=== PATIENT | male | born 1960 | race Caucasian/White ===

== ENCOUNTER → 2018-01-15 14:57 | Outpatient (CLI) | payer MEDICAID, SELFPAY ==
[2018-01-15 15:42] LABS: Alanine Aminotransferase 25 U/L (12-78); Albumin Level 3.5 gm/dL (3.4-5.0); Albumin/Globulin Ratio 0.9 (1.1-1.8); Alkaline Phosphatase 94 U/L (46-116); Anion Gap 9.9 mEq/L (5-15); Aspartate Amino Transferase 17 U/L (15-37); Bilirubin,Total 0.1 mg/dL (0.2-1.0); Blood Urea Nitrogen 18 mg/dL (7-18); Calcium 9.4 mg/dL (8.5-10.1); Carbon Dioxide 29 mmol/L (21.0-32.0); Chloride 104 mmol/L (98-107); Creatinine,Serum 0.69 mg/dL (0.70-1.30); Estimated Glomerular Filt Rate 118 ml/min (>60); GFR (African American) 143 ML/MIN (>60); Globulin 3.7 gm/dl (1.3-3.2); Glucose 88 mg/dL (74-106); Potassium 3.9 mmoL/L (3.5-5.1); Sodium 139 mmol/L (136-145); Thyroid Stimulating Hormone 5.86 uIU/ml (0.358-3.740); Total Protein,Serum 7.2 gm/dL (6.4-8.2)
--- NOTE | 2018-01-15 15:51 | CT_ITS ---
CT chest w con HISTORY: ITS.REASON: TONSILLAR CA,RT JAW PAIN,SUPRACLAVICULAR LYMPHADENOPATHY ORDERING PHYSICIAN: Kala Michaels PATIENT AGE: 57 years TECHNIQUE: Axial images obtained following the administration of 50 mL of Isovue 370 . Sagittal, and coronal reformatted images are also generated and reviewed. All CT scans at the facility use one or more dose reduction, viz: automated exposure control; ma/kV adjustment per patient size (including targeted exams where dose is matched to indication; i.e. head); or iterative reconstruction technique. COMPARISON: None FINDINGS: There are a few scattered small mediastinal lymph nodes. No enlarged lymph nodes apparent. No mediastinal or hilar mass or adenopathy. There is some ectasia of the thoracic aorta. No evidence of aortic aneurysm or dissection. No large central pulmonary embolus. Diffuse upper lobe centrilobular and paraseptal emphysematous changes with prominence of the interstitium. There are bullous changes in both upper lobes medially. No suspicious pulmonary nodules, infiltrates, or effusions. Minimal parenchymal opacity in the left upper lobe laterally and inferiorly and may relate to an area of scarring in a be confirmed with follow-up. No bony destructive process. There are a few scattered isodensity within the liver the largest in the right hepatic lobe hepatic cysts. Ultrasound may confirm. There are small right renal cyst. IMPRESSION: 1. Centrilobular and paraseptal emphysema with prominence of the interstitium. 2. No mediastinal or hilar adenopathy. No suspicious pulmonary lesions.. 3. No obvious axillary or supraclavicular adenopathy.
--- NOTE | 2018-01-15 15:53 | CT_ITS ---
CT soft tissue neck w con INDICATION: ITS.REASON: TONSILLAR CA,SUPRCLAVICULAR LYMPHDENOPATHY,RT JAW PAIN ORDERING PHYSICIAN: Kala Michaels PATIENT AGE: 57 years COMPARISON: Old exams have been sent for but are not yet available at the time of the reading. An addendum may be added if old studies are made available TECHNIQUE: Axial images are obtained following the intravenous administration of 50 mL's of Isovue-370. Sagittal and coronal reformatted images are reviewed as well. All CT scans at the facility use one or more dose reduction, viz: automated exposure control; ma/kV adjustment per patient size (including targeted exams where dose is matched to indication; i.e. head); or iterative reconstruction technique. FINDINGS: There is some fullness of the left fossa of Rosenmuller in the nasopharyngeal region. There is also slight increased density in the left parapharyngeal area at the level of the base of the uvula. This extends somewhat posteriorly in the left lateral oropharynx and hypopharynx. In the region of the palatine tonsils. Correlation with direct visualization and correlation with old films are needed. No obvious adenopathy or abscess. The epiglottis and uvula and glottic region have an unremarkable appearance. No supraclavicular adenopathy apparent. No acute bony anomalies. The thyroid gland, parotid gland, submandibular glands have an unremarkable appearance. IMPRESSION: Increased soft tissue fullness is noted in the left nasopharynx at the fossa of Rosenmuller and extends along the left parapharyngeal region to the palatine tonsil area. Residual recurrent neoplasm is a consideration. Please correlate with direct visualization an old studies. No cervical or supraclavicular adenopathy evident
[2018-01-15 16:22] LABS: Basophils % 0.4 % (0.1-2.0); Eosinophils # 0.2 K/mm3 (0.0-0.4); Hematocrit 39.1 % (42.0-52.0); Lymphocytes # 0.8 K/mm3 (0.7-4.5); Lymphocytes % 12.5 K/mm3 (10-50); Mean Corpuscular HGB Conc 33.2 g/dL (31.8-35.4); Mean Corpuscular Hemoglobin 30.7 pg (27.0-31.2); Mean Corpuscular Volume 92.5 fl (80-94); Mean Platelet Volume 9.9 fl (7.4-10.4); Monocytes # 0.6 K/mm3 (0.1-1.0); Monocytes % 8.7 % (1.7-9.3); Neutrophils # 4.9 K/mm3 (1.8-7.8); Neutrophils % 75.4 % (37.0-80.0); Platelet Count 194 K/mm3 (142-424); Red Blood Count 4.22 M/mm3 (4.60-6.20); Red Cell Distribution Width 15.6 % (11.5-17.5); White Blood Count 6.5 K/mm3 (4.8-10.8)
--- NOTE | 2018-04-03 13:39 | SW/DCPLANNER ---
Patient has previously been set up with tube feedings through [facility]. Patient did have an appointment yesterday and stated to nurse (Tosha) that he was out of tube feedings. I have contacted Mandy at [facility] to inform her that this patient will need more tube feedings....Mandy stated that they have been trying to get ahold of this patient with no response. I did inform Mandy that patient is very hard to get ahold of via phone but patient is almost always at home. [facility] will [facility] to get ahold of patient and/or deliver tube feedings.
== END ==
PROVIDERS: PCP Nurse Practitioner Family; Visit Provider Nurse Practitioner
DX: C09.9 Malignant neoplasm of tonsil, unspecified (principal); R68.84 Jaw pain
CPT/HCPCS: 36415; 70491; 71260; 80053; 84443; 85025; Q9967

== ENCOUNTER → 2018-06-17 08:19 | Outpatient (CLI) | payer MEDICAID, SELFPAY ==
[2018-06-17 08:50] LABS: Alanine Aminotransferase 16 U/L (12-78); Albumin Level 3.5 gm/dL (3.4-5.0); Albumin/Globulin Ratio 0.9 (1.1-1.8); Alkaline Phosphatase 85 U/L (46-116); Anion Gap 8.2 mEq/L (5-15); Aspartate Amino Transferase 10 U/L (15-37); Bilirubin,Total 0.3 mg/dL (0.2-1.0); Blood Urea Nitrogen 14 mg/dL (7-18); Calcium 9.7 mg/dL (8.5-10.1); Carbon Dioxide 35 mmol/L (21.0-32.0); Chloride 105 mmol/L (98-107); Creatinine,Serum 0.93 mg/dL (0.70-1.30); Estimated Glomerular Filt Rate 84 ml/min (>60); GFR (African American) 101 ML/MIN (>60); Glucose 110 mg/dL (74-106); Potassium 4.2 mmoL/L (3.5-5.1); Sodium 144 mmol/L (136-145); Total Protein,Serum 7.5 gm/dL (6.4-8.2)
--- NOTE | 2018-06-17 09:22 | MR_ITS ---
MR head/brain wo/w con HISTORY: Non-small cell metastatic lung cancer ITS.REASON: NON-SMALL CELL LUNG CANCER ORDERING PHYSICIAN: Referral Provider PATIENT AGE: 57 years Comparison: TECHNIQUE: Standard multiplanar multiecho sequences are performed without and with gadolinium enhancement . FINDINGS: No midline shift a, mass effect, intracranial hemorrhage, or hydrocephalus is evident. No evidence of acute infarction. There is mild generalized atrophy with a few scattered periventricular and subcortical T2 white matter hyperintensities consistent with ischemic gliotic change from microvascular disease. Perivascular dilated spaces are present within the basal ganglia. No enhancing lesions evident that would indicate metastatic disease. There is a mildly prominent draining vein in the left parietal region draining to the cortex from the paraventricular region consistent with an incidental developmental venous anomaly.. There is some slight increase T2 signal in this region suggesting some mild gliotic change. The cerebellopontine angle, cerebellum, and brainstem are unremarkable. The pituitary and optic chiasm are unremarkable. No cerebellar ectopia. There is opacification of the right mastoid sinus and a small retention cyst in the right maxillary sinus superiorly. IMPRESSION: 1. No evidence of intracranial metastasis. 2. 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 Atrophy with chronic ischemic gliotic changes. 4. Right mastoid sinus disease
== END ==
PROVIDERS: PCP Nurse Practitioner Family; Referring Provider Surgery; Visit Provider Physician Assistant Medical
DX: C34.90 Malignant neoplasm of unspecified part of unspecified bronchus or lung (principal)
CPT/HCPCS: 36415; 70553; 80053; A9576

== ENCOUNTER → 2021-09-29 10:49 | Outpatient (POV) | payer MEDICARE, MEDICAID, SELFPAY ==
[2021-09-29 10:56] VITALS: BP 123/81; PULSE 123; RESP 18; TEMP 36.8; O2SAT 96; BMI 20.1
--- NOTE | 2021-09-29 11:13 | P.CONS_ITS ---
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 We will also increase his gabapentin to 3 mg 3 times a day. We will follow up on his drug screen and follow-up with him in 1 month. We will reevaluate his symptoms and make adjustments if needed. HPI - Data of Consult Patient: new to practice Consult date: 09/29/21 Requesting Physician: Isaias Hester MD - Consult Narrative Reason for consult: Head and neck pain on the right side status post malignant neoplasm of the History of present illness: Mr. Wisdom is a 60 year old male who was previously treated last year for malignant neoplasm of the lung and right tonsil. He underwent chemotherapy and surgery. He has had resolution of his cancer. He still presents with some right jaw and neck pain. He was treated with oral narcotics oxycodone 10 mg 6 times a day and gabapentin 600 mg once a day. His oncologist was treating him this is Dr. Meseret Nielsen. We will take over his medical management for his he ad neck pain due to his cancer. Eitan and drug screen are all appropriate. We will write him for oxycodone 10 mg 5 times a day as he can decrease 1 pill and increase his gabapentin to 300 mg 3 times a day. CC: Isaias Hester MD [facility] History I have reviewed the patient's past medical history: Yes Medical History: Reports:: Cancer (LUNG) Denies:: Diabetes Mellitus Type 1, Diabetes Mellitus Type 2, MRSA *Have you ever received a pneumonia vaccine?: No *Have you received a flu vaccine this season?: No Other Surgeries: Yes: Other Amputation: No Fractures: No - *Social History Last grade of school completed: High school graduate Smoking Status: Current every day smoker Tobacco Type: cigarettes # Packs/Day (cigarettes): 1 Alcohol Intake: never Substance Use Type: denies use *Occupational Status:: disabled Housing: house Household Members: family *Travel in the last 8 weeks: None Family Hx:: Cancer Review of Systems - ENT Reports neck pain, Reports sore throat Meds Home Medications Medication Instructions Recorded Confirmed Type oxycodone-acetaminophen 10 mg-325 1 tab PO Q6H PRN tab 01/10/18 09/29/21 History mg tablet Allergies Allergy/AdvReac Type Severity Reaction Status Date / Time No Known Allergies Allergy Verified 09/29/21 10:55 Objective Vital signs: Temp Pulse Resp BP Pulse Ox 98.2 F 123 H 18 123/81 96 09/29/21 10:56 09/29/21 10:56 09/29/21 10:56 09/29/21 10:56 09/29/21 10:56
== END ==
PROVIDERS: Visit Provider Anesthesiology
DX: C76.0 Malignant neoplasm of head, face and neck (principal); C09.9 Malignant neoplasm of tonsil, unspecified
CPT/HCPCS: 99202; G0463

== ENCOUNTER → 2021-10-30 08:45 | Outpatient (POV) | payer MEDICARE, MEDICAID, SELFPAY ==
[2021-10-30 09:00] VITALS: BP 92/64; PULSE 69; RESP 18; O2SAT 95; BMI 20.9
--- NOTE | 2021-10-30 09:02 | HMH.PAINSOAP ---
[facility] Pain Management SOAP Note Subjective:: Patient is a pleasant 60-year-old male who comes in here today for follow-up and medication refill. We are currently managing the patient's pain secondary to malignant neoplasm of head, face, neck, and tonsil. He is currently being managed with oxycodone 10 mg 5 times a day and gabapentin 300 mg 3 times a day. Patient denies any side effects from these medications. Patient denies any change in location of the pain. He rates his pain today as 5 out of 10. His Angélica is [phone] with an active morphine equivalent of 75. ORT score is 0, low risk. Drug screens have been reviewed and appropriate. Review of Systems General: No recent weight changes, no fever, no sleep disturbances ENT: neck pain, sore throat Respiratory: No cough, no shortness of air, no recurring pulmonary infections Cardiovascular/peripheral vascular: No chest pain, no palpitations, no edema, no shortness of breath Gastrointestinal: No new onset incontinence, normal bowel movements reported Genitourinary: No new onset incontinence Psychiatric: [Normal mood/affect] Neurological: [Denies weakness in extremities], [denies balance issues] Objective:: Physical exam General: Alert and oriented x3, no acute distress, pleasant and cooperative ENT: limited ROM of neck d/t pain Lungs: Respirations even and unlabored, symmetrical chest expansion Eyes: PERRL Musculoskeletal: Normal gait noted Neurological: Speech clear, no gross sensory deficit Assessment:: Malignant neoplasm of head, face, and neck Malignant neoplasm of tonsil, unspecified Plan:: We will continue the patient's oxycodone 10 mg Rytary 5 times a day and gabapentin 300 mg 3 times a day. We will provide the patient with 1 month worth of refill. We would like to see the patient again in 1 month to reevaluate symptoms and make adjustments if needed. Risks and benefits of the medication have been explained in detail to the patient. The patient does understand the risk of dependence on the medication when given over a prolonged period. Patient has been advised of risks of oversedation with the prescribed medication. Narcan has been offered to the paitent in the event of oversedation. Patient has been advised that a family member should also be educated regarding administration of Narcan. The patient has been advised to consult with his/her primary care provider and pharmacist regarding drug-drug interaction of medications currently prescribed. Patient has been prescribed a controlled substance after being counseled on the medication, medication safety, and possible side effects. ANGÉLICA report has been obtained and reviewed prior to prescription and found to be appropriate. Opioid contract was reviewed and signed by the patient, and that they have agreed to all of the terms set forth by our compliance program. Patient has been instructed to contact the clinic with any concerns before the next appointment. Dr. Hester has reviewed this note and agrees with this plan of care. This note was dictated using voice recognition software and make contain errors or omissions. Patient has been instructed to contact the clinic with any concerns before the next appointment. Dr. Hester has reviewed this note and agrees with this plan of care. This note was dictated using voice recognition software and make contain errors or omissions. [facility] History Medical History: Reports:: Cancer (LUNG) Denies:: Diabetes Mellitus Type 1, Diabetes Mellitus Type 2, MRSA *Have you ever received a pneumonia vaccine?: No *Have you received a flu vaccine this season?: No Other Surgeries: Yes: Other Amputation: No Fractures: No - *Social History Smoking Status: Current every day smoker Tobacco Type: cigarettes # Packs/Day (cigarettes): 1 Alcohol Intake: never Substance Use Type: denies use *Occupational Status:: unemployed Housing: house Household Members: family *Travel
== END ==
PROVIDERS: Visit Provider Clinical Nurse Specialist Family Health
DX: C76.0 Malignant neoplasm of head, face and neck (principal); C09.9 Malignant neoplasm of tonsil, unspecified
CPT/HCPCS: 99212; G0463

== ENCOUNTER 2021-12-01 10:47 | Outpatient (REF) | payer MEDICARE, MEDICAID, SELFPAY ==
[2021-12-01] VITALS (21 sets, daily range): BP systolic 73–107; BP diastolic 37–87; PULSE 68–120; RESP 20–120; TEMP 35.6–36.9; O2SAT 95–99; BMI 16.9
[2021-12-01 11:43] LABS: Hematocrit 21.1 % (42.0-52.0)
[2021-12-01 11:44] LABS: Hemoglobin 6.5 g/dL (14.1-18.0)
[2021-12-01 17:38] LABS: Hematocrit 28.9 % (42.0-52.0)
[2021-12-01 17:45] LABS: Hemoglobin 9.3 g/dL (14.1-18.0)
== END 2021-12-01 17:45 | disposition home or self-care (01) ==
LOC: INF 10:47
PROVIDERS: PCP Nurse Practitioner Family; Visit Provider Nurse Practitioner Family
DX: D64.9 Anemia, unspecified (principal)
CPT/HCPCS: 36430; 85014; 85018; 86850; P9016

== ENCOUNTER 2021-12-11 18:37 | Inpatient (IN) | payer MEDICARE, MEDICAID, SELFPAY ==
--- NOTE | 2021-12-11 18:36 | ECG_ITS ---
APPROVED REPORT Exam: Resting ECG HR:120 bpm ECG Measurements Heart Rate 120 AXES AL 148 P 61 QRSd 84 QRS 93 QT 304 T 70 QTc 375 Conclusion SINUS TACHYCARDIA BORDERLINE RIGHT AXIS DEVIATION [QRS AXIS > 90] ABNORMAL RHYTHM ECG UNCONFIRMED REPORT Electronically signed by : Norris Ng MD 12/12/2021 13:48:32
[2021-12-11 18:38] VITALS: BP 100/64; PULSE 121; RESP 16; TEMP 36.8; O2SAT 94; BMI 15.2
--- NOTE | 2021-12-11 18:40 | XR_ITS ---
PROCEDURE INFORMATION: Exam: XR Chest Exam date and time: 12/11/2021 6:40 PM Age: 61 years old Clinical indication: Cough TECHNIQUE: Imaging protocol: XR of the chest. Views: 1 view. COMPARISON: CHESTW CT chest w con 01/15/2018 4:24 PM FINDINGS: Lungs: Bilateral mid and lower lung zone predominant ground-glass and linear opacities, right greater than left, likely multifocal pneumonia. Atypical viral pneumonia, such as COVID-19, could have this appearance. Alternatively or concomitantly, hydrostatic/cardiogenic pulmonary edema possible. Pleural spaces: Unremarkable. No pleural effusion. No pneumothorax. Heart/Mediastinum: Normal. Vasculature: Atherosclerotic vascular disease. Bones/joints: Multilevel thoracic spine degenerative disc space narrowing and osteophyte formation. IMPRESSION: Bilateral mid and lower lung zone predominant ground-glass and linear opacities, right greater than left, likely multifocal pneumonia. Atypical viral pneumonia, such as COVID-19, could have this appearance. Alternatively or concomitantly, hydrostatic/cardiogenic pulmonary edema possible.
--- NOTE | 2021-12-11 18:52 | HMH.EDCP ---
ED Disposition Clinical Impression: Atypical pneumonia, Elevated troponin I level Chest pain Qualifiers: Chest pain type: unspecified Qualified Code(s): R07.9 - Chest pain, unspecified Disposition: Admitted As Inpatient Condition on Discharge: Fair - Critical Care Critical Care Time: No Attestation: On , the high probability of a clinically significant, sudden or life threatening deterioration of the following system(s) required my full and direct attention, intervention and personal management. The time I documented below is in addition to time spent performing reported procedures but includes the following listed in this critical care notation. Medical Decision Making - Medical Records Medical records reviewed: Yes: I reviewed the patient's medical records. - Eitan Inquiry Pt receiving controlled substance: No Vital Signs: 12/11/21 18:38 Temperature 98.3 F Temperature Source Oral Pulse Rate [Left Radial] 121 H Respiratory Rate 16 Blood Pressure [Right Arm] 100/64 L Blood Pressure Mean [Right Arm] 76 Blood Pressure Source [Right Arm] Automatic Cuff Blood Pressure Position [Right Arm] Sitting 02 Sat by Pulse Oximetry 94 L Oxygen Delivery Method Room Air - Lab Data Lab Results 12/11/21 18:43: WBC 12.1 H, RBC 2.71 L, Hgb 7.5 L, Hct 26.2 L, MCV 96.5 H, MCH 27.7, MCHC 28.7 L, RDW 20.4 H, Plt Count 345, MPV 10.0, Neut % (Auto) 84.6 H, Lymph % (Auto) 8.4 L, George % (Auto) 4.6, Eos % (Auto) 1.7, Baso % (Auto) 0.7, Neut # (Auto) 10.3 H, Lymph # (Auto) 1.0, George # (Auto) 0.6, Eos # (Auto) 0.2, Baso # (Auto) 0.1 12/11/21 18:43: Sodium 134 L, Potassium 4.1, Chloride 102, Carbon Dioxide 27, Anion Gap 9.1, BUN 26 H, Creatinine 0.50 L, Estimated Creat Clear 53, Estimated GFR 169, Est GFR ( Amer) 205, Glucose 98, Calcium 8.5, Total Bilirubin 0.5, AST 44, ALT 35, Alkaline Phosphatase 92, Troponin I 0.05 H, NT-Pro-B Natriuret Pep 1380 H, Total Protein 7.2, Albumin 3.6, Globulin 3.6 H, Albumin/Globulin Ratio 1.0 L Result diagrams: 12/11/21 18:43 12/11/21 18:43 Orders (Tests/Meds): ED MEDICATIONS Generic Name Dose Route Start Last Admin Trade Name Familia PRN Reason Stop Dose Admin Doxycycline Hyclate 100 mg/ 250 mls @ 166.667 mls/hr 12/11/21 19:45 Sodium Chloride IV 12/25/21 19:44 Q12H CEE Discontinued Medications Generic Name Dose Route Start Last Admin Trade Name Freq PRN Reason Stop Dose Admin Dexamethasone Sodium Phosphate 10 mg 12/11/21 19:37 Dexamethasone 4mg/Ml 5ml Mdv IV 12/11/21 19:38 ONCE ONE ORDERS Category Date Time Status Rapid PCR Covid and Flu A/B Stat Lab 12/11/21 19:37 Ordered Troponin I Q3H Lab 12/11/21 21:45 Ordered Troponin I Q3H Lab 12/12/21 00:45 Ordered - Radiology Data #1 Image(s): Chest Image Reviewed: Yes I reviewed the patient's radiology results, Yes I reviewed the patient's radiology image, Yes I have reviewed radiologist's interpretation IMPRESSION: Bilateral mid and lower lung zone predominant ground-glass and linear opacities, right greater than left, likely multifocal pneumonia. Atypical viral pneumonia, such as COVID-19, could have this appearance. Alternatively or concomitantly, hydrostatic/cardiogenic pulmonary edema possible. - ECG Data Tracing #1 I reviewed this ECG and interpreted as documented below: Tachycardic rate of 120 bpm, CO interval 140 ms, normal QTC. Sinus tachycardia with nonspecific changes. ECG initial impression date: 12/11/21 ECG initial impression time: 18:36 - Reevaluation(s) Time: 19:43 Reevaluation #1: Reevaluation, patient's pain is improved. Does have slightly elevated troponin. Chest x-ray is consistent with viral pneumonia. Versus atypical pneumonia. Patient started on antibiotics. Will be admitted to the hospital for further evaluation and treatment. Medical Decision Narrative: 61-year-old male presented to the emergency department with some chest discomfort
[2021-12-11 18:56] LABS: Basophils # 0.1 K/mm3 (0-0.2); Basophils % 0.7 % (0.1-2.0); Eosinophils # 0.2 K/mm3 (0.0-0.4); Eosinophils % 1.7 % (0.1-12.0); Hematocrit 26.2 % (42.0-52.0); Hemoglobin 7.5 g/dL (14.1-18.0); Lymphocytes % 8.4 % (10-50); Mean Corpuscular HGB Conc 28.7 g/dL (31.8-35.4); Mean Corpuscular Hemoglobin 27.7 pg (27.0-31.2); Mean Corpuscular Volume 96.5 fl (80-94); Monocytes # 0.6 K/mm3 (0.1-1.0); Monocytes % 4.6 % (1.7-9.3); Neutrophils # 10.3 K/mm3 (1.8-7.8); Neutrophils % 84.6 % (37.0-80.0); Platelet Count 345 K/mm3 (142-424); Red Blood Count 2.71 M/mm3 (4.60-6.20); Red Cell Distribution Width 20.4 % (11.5-17.5); White Blood Count 12.1 K/mm3 (4.8-10.8)
[2021-12-11 19:00] VITALS: BP 91/54; PULSE 117; O2SAT 99
[2021-12-11 19:03] LABS: Chloride 102 mmol/L (98-107); Sodium 134 mmol/L (136-145)
[2021-12-11 19:04] LABS: Potassium 4.1 mmoL/L (3.5-5.1)
[2021-12-11 19:06] LABS: Alanine Aminotransferase 35 U/L (12-78); Albumin Level 3.6 g/dl (3.5-5.0); Alkaline Phosphatase 92 U/L (38-126); Anion Gap 9.1 mEq/L (5-15); Aspartate Amino Transferase 44 U/L (17-59); Bilirubin,Total 0.5 mg/dl (0.2-1.3); Blood Urea Nitrogen 26 mg/dl (9-20); Carbon Dioxide 27 mmol/L (22.0-30.0); Creatinine Clearance Estimated 53 mL/min (50-200); Estimated Glomerular Filt Rate 169 ml/min (>60); GFR (African American) 205 ML/MIN (>60); Globulin 3.6 g/dL (1.3-3.2); Total Protein,Serum 7.2 g/dl (6.3-8.2)
[2021-12-11 19:07] LABS: Calcium 8.5 mg/dl (8.4-10.2); Glucose 98 mg/dl (74-100)
[2021-12-11 19:15] LABS: NT Pro Brain Natriuretic Pep. 1380 pg/mL (0-125)
[2021-12-11 19:18] LABS: Troponin I 0.05 ng/ml (0.00-0.034)
[2021-12-11 19:30] VITALS: BP 93/56; PULSE 119; O2SAT 97
[2021-12-11 19:57] LABS: Coronavirus 19, PCR Not Detected (NotDetected); Influenza A, PCR Not Detected (NotDetected); Influenza B, PCR Not Detected (NotDetected)
[2021-12-11 20:00] VITALS: BP 92/57; PULSE 119; O2SAT 97
[2021-12-11 20:58] VITALS: BP 95/68; PULSE 119; RESP 20; TEMP 36.9; O2SAT 94
--- NOTE | 2021-12-11 20:58 | PC.NURSE ---
Report called to VIKASH Joyner at this time.
--- NOTE | 2021-12-11 21:14 | PC.NURSE ---
PT ARRIVED TO FLOOR FROM ED AT 2113
[2021-12-11 21:45] VITALS: PULSE 120; BMI 15.1
[2021-12-11 22:45] LABS: Troponin I 0.06 ng/ml (0.00-0.034)
[2021-12-12] VITALS (28 sets, daily range): BP systolic 80–107; BP diastolic 53–74; PULSE 113–127; RESP 16–26; TEMP 36.4–36.9; O2SAT 90–97; BMI 18.5
[2021-12-12 01:16] LABS: Troponin I 0.06 ng/ml (0.00-0.034)
[2021-12-12 05:39] LABS: Basophils % 0.2 % (0.1-2.0); Eosinophils % 0.1 % (0.1-12.0); Hematocrit 23.4 % (42.0-52.0); Lymphocytes # 0.6 K/mm3 (0.7-4.5); Lymphocytes % 4.2 % (10-50); Mean Corpuscular HGB Conc 29.6 g/dL (31.8-35.4); Mean Corpuscular Hemoglobin 28.2 pg (27.0-31.2); Mean Corpuscular Volume 95.3 fl (80-94); Mean Platelet Volume 9.9 fl (7.4-10.4); Monocytes # 0.2 K/mm3 (0.1-1.0); Monocytes % 1.4 % (1.7-9.3); Neutrophils # 13.6 K/mm3 (1.8-7.8); Neutrophils % 94.1 % (37.0-80.0); Platelet Count 314 K/mm3 (142-424); Red Blood Count 2.45 M/mm3 (4.60-6.20); Red Cell Distribution Width 20.4 % (11.5-17.5); White Blood Count 14.5 K/mm3 (4.8-10.8)
[2021-12-12 05:41] LABS: Hemoglobin 6.9 g/dL (14.1-18.0)
[2021-12-12 05:42] LABS: MANUAL DIFFERENTIAL MANUAL DIFFERENTIAL (MANUAL DIFF)
[2021-12-12 05:45] LABS: Chloride 105 mmol/L (98-107); Potassium 4.5 mmoL/L (3.5-5.1); Sodium 133 mmol/L (136-145)
[2021-12-12 05:48] LABS: Anion Gap 8.5 mEq/L (5-15); Blood Urea Nitrogen 25 mg/dl (9-20); Carbon Dioxide 24 mmol/L (22.0-30.0); Creatinine Clearance Estimated 53 mL/min (50-200); Estimated Glomerular Filt Rate 169 ml/min (>60); GFR (African American) 205 ML/MIN (>60); Glucose 138 mg/dl (74-100)
[2021-12-12 06:03] LABS: Neutrophils % 100 % (42-76); Platelet Estimate Normal; Total Cells Counted 100
[2021-12-12 06:04] LABS: Anisocytosis 1+; Hypochromasia 1+
--- NOTE | 2021-12-12 07:27 | P.CONPHA_ITS ---
[facility] Pharmacy VTE Monitoring - Patient Demographics Admission date: 12/11/21 Report Date: 12/12/21 Time: 07:27 Allergies/Adverse Reactions: Patient Allergies No Known Allergies Allergy (Verified 09/29/21 10:55) Height: 1.78 m Weight: 58.74 kg Patient Problems: Current Active Problems Chest pain (Acute) Atypical pneumonia (Acute) Elevated troponin I level (Acute) - VTE Risk Labs: VTE Related Lab Results Hgb 6.9 g/dL (14.1-18.0) L 12/12/21 05:26 Hct 23.4 % (42.0-52.0) L 12/12/21 05:26 Plt Count 314 K/mm3 (142-424) 12/12/21 05:26 BUN 25 mg/dl (9-20) H 12/12/21 05:26 Creatinine 0.50 mg/dl (0.66-1.25) L 12/12/21 05:26 Estimated Creat Clear 53 mL/min (50-200) 12/12/21 05:26 VTE Score: 4 VTE Risk Level: Low Risk - Prophylaxis VTE Prophylaxis Ordered?: Yes Types of VTE Prophylaxis: TEDS Knee High, Pharmacological Location of Applied Device: Bilateral Lower Extremeties Pharmacologic Type: Heparin
--- NOTE | 2021-12-12 07:38 | HMH.PHAINT ---
MEDICATION RECONCILIATION COMPLETED ON PATIENT USING MAR FROM LONG TERM. -JOCELYNE MARIE, MOSESD
--- NOTE | 2021-12-12 09:40 | HMH.HP ---
*Admission Date: 12/11/21 *Chief complaint: Chest Pressure *History of present illness: 61-year-old male patient presented to the [facility] emergency department with reports of chest discomfort. He states that this discomfort started earlier in the day and resolved shortly afterwards, he denied pain at present states the pain was midline and nonradiating reports it felt more like a dullness. He denies any shortness of breath, cough, headache, fever/chills/body aches, or nausea/vomiting/diarrhea 12/11/21 CXR: FINDINGS: Lungs: Bilateral mid and lower lung zone predominant ground-glass and linear opacities, right greater than left, likely multifocal pneumonia. Atypical viral pneumonia, such as COVID-19, could have this appearance. Alternatively or concomitantly, hydrostatic/cardiogenic pulmonary edema possible. Pleural spaces: Unremarkable. No pleural effusion. No pneumothorax. Heart/Mediastinum: Normal. Vasculature: Atherosclerotic vascular disease. Bones/joints: Multilevel thoracic spine degenerative disc space narrowing and osteophyte formation. IMPRESSION: Bilateral mid and lower lung zone predominant ground-glass and linear opacities, right greater than left, likely multifocal pneumonia. Atypical viral pneumonia, such as COVID-19, could have this appearance. Alternatively or concomitantly, hydrostatic/cardiogenic pulmonary edema possible. Electronically signed by Jayant Coates MD 61-year-old male patient resting in bed quietly she denies any chest pain or shortness of breath during the night. Hemoglobin 6.9 we will transfuse 2 units of packed red blood cells. [facility] History I have reviewed the patient's past medical history: Yes Medical History: Reports:: Cancer Denies:: Diabetes Mellitus Type 1, Diabetes Mellitus Type 2, MRSA *Have you ever received a pneumonia vaccine?: No *Have you received a flu vaccine this season?: No Other Surgeries: Yes: Other Amputation: No Fractures: No - *Social History Last grade of school completed: High school graduate Smoking Status: Former smoker Tobacco Type: cigarettes # Packs/Day (cigarettes): 1 Alcohol Intake: never Substance Use Type: denies use *Occupational Status:: disabled Housing: alf Household Members: other *Travel in the last 8 weeks: None Family Hx:: Cancer Review of Systems - Review of Systems Review of systems:: pertinent systems reviewed and negative unless documented below - Constitutional Denies body ache(s) - Eyes Denies blurry vision, Denies change in vision - ENT Denies abnormal hearing, Denies dizziness - *Cardiovascular Reports chest pain, Reports chest pain at rest - *Respiratory Denies change in phlegm color, Denies chest congestion, Denies cough, Denies shortness of breath - *Gastrointestinal Denies abdominal pain, Denies change in stools - *Musculoskeletal Denies back pain, Denies body aches - Integumentary/Breasts Denies hair loss, Denies non-healing lesions - *Neurologic Denies abnormal hearing, Denies headache(s) - Psychiatric Denies lack of enjoyment, Denies anxiety - Endocrine Denies cold intolerance, Denies excessive sweating - Hematologic/Lymphatic Denies easy bleeding, Denies easy bruising - Allergic/Immunologic Denies GI upset with certain foods, Denies tongue swelling Meds Home Medications Medication Instructions Recorded Confirmed Type Levothyroxine Sodium 100 mcg G-TUBE DAILY 10/30/21 12/12/21 History [Levothyroxine 100mcg (0.1MG) Tab] Acetaminophen [Acetaminophen Extra 500 mg G-TUBE Q4HP PRN 12/12/21 12/12/21 History Strength] Nicotine [Nicotine Patch 21 mg TD DAILY 12/12/21 12/12/21 History 21mg/24hrs] Psyllium Husk [Metamucil] 1 packet G-TUBE DAILY 12/12/21 12/12/21 History Allergies Allergy/AdvReac Type Severity Reaction Status Date / Time No Known Allergies Allergy Verified 09/29/21 10:55 Exam Vital signs and Labs for Last 24 H
--- NOTE | 2021-12-12 10:03 | SW/DCPLANNER ---
Addendum entered by [facility] 12/19/21 13:57: Gabriella with [facility] is working to get a nurse to [facility] to evaluate this patient. Addendum entered by [facility] 12/19/21 12:03: Gabriella w/ [facility] has stated that information is being reviewed, sister is being contacted and she will arrange a time for a nurse to come to evaluate this patient today. Addendum entered by [facility] 12/19/21 11:24: Lamberto Lora has spoke with patients sister and she is agreeable w/ Hospice Consult. Patient information has been faxed to [facility]. Addendum entered by [facility] 12/19/21 10:44: Giana davidson/ [facility] did inform me of a new number for patients sister [place]) [phone]. I have informed Lamberto Lora of new number: he has stated he will call and have discussion regarding Hospice Care. Addendum entered by [facility] 12/19/21 10:15: Myself and Lamberto Lora have attempted to contact patients sister this AM with no answer. Addendum entered by [facility] 12/18/21 15:14: I have made multiple attempts to get in contact with patients sister: no answer/ VM left for returned phone call. Addendum entered by [facility] 12/18/21 10:45: I have attempted to contact this patient family regarding Hospice Care. Patients sister did not answer at this time: VM has been left. Addendum entered by [facility] 12/15/21 09:53: Updated patient information has been faxed to Giana davidson/ [facility]. Addendum entered by [facility] 12/14/21 11:12: Updated patient information has been faxed to Giana davidson/ [facility]. Addendum entered by [facility] 12/12/21 10:13: CORRECTION: SNF level of care. Original Note: This patient currently resides at [facility]. I spoke w/ Giana this AM from [facility] and she has confirmed that patient is [facility] level of care. I will continue to follow up w/ Giana until patient is medically stable for discharge. Discharge date is unknown at this time.
--- NOTE | 2021-12-12 10:23 | PC.NURSE ---
Attempted to call and get consent for PRBC transfusion but no answer at this time
--- NOTE | 2021-12-12 10:29 | CA_ITS ---
APPROVED REPORT EXAM: Comprehensive 2D, Doppler, and color-flow Echocardiogram Service Desk Technician: Dagmar Harvey, RCS, RVS Ht: 5 ft 10 in Wt: 129lbs BSA: 1.73 BP: 99/53 mmHg Indications: CP, Pneumonia, Anemia, Tachycardia, Anemia, Thyroid disease, Cancer 2D Dimensions IVSd 1.03 cm LVEF (Visual) 78.70 % PWd 1.04 cm LA Volume 29.30 mL LVDd 4.57 cm LA Volume Index 16.90 mL/m2 (M/F) 16-34 LVDs 2.41 cm Aortic Root 3.24 cm Left Atrium 3.93 cm LVOT 2.06 cm (M/F) 1.5-2.5 M-Mode Dimensions LA Diam 4.05 cm (1.9-4.0) Ao Diam 3.42 cm (2.0-3.7) EPSs 1.01 cm TAPSE 1.36 (<1.7) LV Diastology E Decel Time 150.00 (160-240 msec) E/A Ratio 1.21 MED E' 8.40 (< 7 cm/sec) MED A' 18.40 cm/s E'/MED E' Ratio 22.06 (>14) LAT E' 8.70 (<10 cm/sec) LAT A' 13.90 cm/s E/LAT E' Ratio 21.30 (>14) Aortic Valve LVOT Max 119.00 (70-110 cm/s) LVOT VTI 27.90 cm AO Peak GR. 5.20 mmHg AO VTI 90.79 (18-25 cm) Mitral Valve MV A Velocity 153.00 (40-130 cm/s) E/A Ratio 1.21 MV Decel. Time 150.00 (160-240 ms) Tricuspid Valve TR P. Velocity 337.00 cm/s RAP Estimate 10.00 mmHg RVSP 55.50 mmHg Left Ventricle Left atrium is mildly enlarged, left ventricle is normal size, hyperdynamic left ventricular systolic function, visually estimated ejection fraction over 65%, posterolateral wall appears to be moderately hypokinetic. Diastolic parameters are inconclusive. Right Ventricle Right atrium and right ventricle are normal size and contractility. Aortic Valve Aortic valve is minimally thickened and fibrosed there is no aortic stenosis or aortic insufficiency. Mitral Valve Mitral valve leaflets are minimally thickened, morphology is not well visualized, there appears to be severe mitral regurgitation, etiology of the mitral regurgitation is not clear from this study. Possibility of acute severe MR cannot be excluded Tricuspid Valve Tricuspid valve is grossly normal, there is trace tricuspid regurgitation. Pulmonic Valve Pulmonic valve is poorly visualized. Great Vessels Aortic root is normal size. Inferior vena cava is poorly visualized. Pericardium No significant pericardial effusion noted. Conclusion 1. Mildly enlarged left atrium, normal left ventricular size, hyperdynamic left ventricular systolic function, visually estimated ejection fraction was 65%, there appears to be segmental wall motion abnormality described above. 2. There is mitral regurgitation present which is likely in severe range, possibility of acute severe MR cannot be excluded, the mechanism of mitral regurgitation is not clear from the study. 3. Trace tricuspid regurgitation. 4. No significant pericardial effusion. 5. Inferior vena cava is poorly visualized. Electronically signed by : Rupert Estrella MD 12/12/2021 21:04:54
--- NOTE | 2021-12-12 10:35 | HMH.CNCARD ---
History of Present Illness Consult date: 12/12/21 Requesting physician: David Bowden Consult reason: shortness of breath Chief complaint: elevated troponins, anemia Additional Medical History:: 1. History of lung cancer status post chemotherapy and radiation approximately 3 months ago 2. History of oropharyngeal cancer status post treatment approximately 2 years ago 3. Severe anemia, 11/2021 with history of blood transfusion approximately 1 month ago per patient 4. Hypothyroidism, on replacement therapy History of present illness: 61-year-old male patient presented to the [facility] emergency department with reports of chest discomfort. He states that this discomfort started earlier in the day and resolved shortly afterwards, he denied pain at present states the pain was midline and nonradiating reports it felt more like a dullness. He denies any shortness of breath, cough, headache, fever/chills/body aches, or nausea/vomiting/diarrhea. The above per Lamberto Lora APRN, for Dr. Bowden Patient denies any chest pain at this time. He does note some shortness of breath. He denies any bloody bowel movements. Cardiology consulted due to elevated troponins. Hemoglobin 6.9 this morning Telemetry shows heart rate in the 120s bpm and appears to be sinus tachycardia. [facility] History Medical History: Reports:: Cancer Denies:: Diabetes Mellitus Type 1, Diabetes Mellitus Type 2, MRSA *Have you ever received a pneumonia vaccine?: No *Have you received a flu vaccine this season?: No Other Surgeries: Yes: Other Amputation: No Fractures: No - *Social History Last grade of school completed: High school graduate Smoking Status: Former smoker Tobacco Type: cigarettes # Packs/Day (cigarettes): 1 Alcohol Intake: never Substance Use Type: denies use *Occupational Status:: disabled Housing: fpc Household Members: other *Travel in the last 8 weeks: None Family Hx:: Cancer Meds Home Medications Medication Instructions Recorded Confirmed Type Levothyroxine Sodium 100 mcg G-TUBE DAILY 10/30/21 12/12/21 History [Levothyroxine 100mcg (0.1MG) Tab] Acetaminophen [Acetaminophen Extra 500 mg G-TUBE Q4HP PRN 12/12/21 12/12/21 History Strength] Nicotine [Nicotine Patch 21 mg TD DAILY 12/12/21 12/12/21 History 21mg/24hrs] Psyllium Husk [Metamucil] 1 packet G-TUBE DAILY 12/12/21 12/12/21 History Allergies Allergy/AdvReac Type Severity Reaction Status Date / Time No Known Allergies Allergy Verified 09/29/21 10:55 Exam Vital signs and Labs for Last 24 Hours: Temp Pulse Resp BP Pulse Ox 97.9 F 124 H 26 H 99/53 L 90 L 12/12/21 08:00 12/12/21 08:00 12/12/21 08:00 12/12/21 08:00 12/12/21 08:00 Laboratory Results - last 24 hr 12/11/21 18:43: WBC 12.1 H, RBC 2.71 L, Hgb 7.5 L, Hct 26.2 L, MCV 96.5 H, MCH 27.7, MCHC 28.7 L, RDW 20.4 H, Plt Count 345, MPV 10.0, Neut % (Auto) 84.6 H, Lymph % (Auto) 8.4 L, [place] % (Auto) 4.6, Eos % (Auto) 1.7, Baso % (Auto) 0.7, Neut # (Auto) 10.3 H, Lymph # (Auto) 1.0, [place] # (Auto) 0.6, Eos # (Auto) 0.2, Baso # (Auto) 0.1 12/11/21 18:43: Sodium 134 L, Potassium 4.1, Chloride 102, Carbon Dioxide 27, Anion Gap 9.1, BUN 26 H, Creatinine 0.50 L, Estimated Creat Clear 53, Estimated GFR 169, Est GFR ( Amer) 205, Glucose 98, Calcium 8.5, Total Bilirubin 0.5, AST 44, ALT 35, Alkaline Phosphatase 92, Troponin I 0.05 H, NT-Pro-B Natriuret Pep 1380 H, Total Protein 7.2, Albumin 3.6, Globulin 3.6 H, Albumin/Globulin Ratio 1.0 L 12/11/21 19:54: SARS-CoV-2 (PCR) Not detected, Influenza A Untype (PCR) Not detected, Influenza Type B (PCR) Not detected 12/11/21 22:07: Troponin I 0.06 H 12/12/21 00:40: Troponin I 0.06 H 12/12/21 05:26: WBC 14.5 H, RBC 2.45 L, Hgb 6.9 L, Hct 23.4 L, MCV 95.3 H, MCH 28.2, MCHC 29.6 L, RDW 20.4 H, Plt Count 314, MPV 9.9, Neut % (Auto) 94.1 H, Lymph % (Auto) 4.2 L, [place] % (Auto) 1.4 L, Eos % (Auto) 0.1, Baso % (Auto) 0.2, Neut # (Auto) 13.6 H, Lymp
--- NOTE | 2021-12-12 10:51 | PC.NURSE ---
Attempted to reach pt's poa again with no answer, message left asking for a return call.
--- NOTE | 2021-12-12 10:55 | HMH.PULMCON ---
*Admission Date: 12/11/21 *Reason for consult:: Acute hypoxic respiratory failure *History of present illness: Mr. Wisdom is a 61-year-old male completed his vaccination course for COVID-19 pneumonia 3 doses, current smoker greater than [id number] smoking history, presented to the hospital worsening respiratory distress and pulmonary was called for further management. Patient admits cough with productive phlegm for the last 3 weeks without any associated fevers or chills. He denies any lower extremity swelling. [facility] History Medical History: Reports:: Cancer Denies:: Diabetes Mellitus Type 1, Diabetes Mellitus Type 2, MRSA *Have you ever received a pneumonia vaccine?: No *Have you received a flu vaccine this season?: No Other Surgeries: Yes: Other Amputation: No Fractures: No - *Social History Last grade of school completed: High school graduate Smoking Status: Former smoker Tobacco Type: cigarettes # Packs/Day (cigarettes): 1 Alcohol Intake: never Substance Use Type: denies use *Occupational Status:: disabled Housing: fdc Household Members: other *Travel in the last 8 weeks: None Family Hx:: Cancer ROS - Cons Denies anorexia, Denies body ache(s) - Eyes Denies change in vision - ENT Reports difficulty swallowing - Card Reports shortness of breath, Reports shortness of breath with activity - Resp Respiratory: Reports chest congestion, Reports dyspnea, Reports dyspnea on exertion, Reports excessive phlegm production, Reports cough with sputum production - GI Gastrointestingal: Denies: abdominal pain - [place] Musculoskeletal: Reports muscle weakness - Psych Denies thoughts of hurting/killing others, Denies thoughts of hurting/killing yourself Meds Home Medications Medication Instructions Recorded Confirmed Type Levothyroxine Sodium 100 mcg G-TUBE DAILY 10/30/21 12/12/21 History [Levothyroxine 100mcg (0.1MG) Tab] Acetaminophen [Acetaminophen Extra 500 mg G-TUBE Q4HP PRN 12/12/21 12/12/21 History Strength] Nicotine [Nicotine Patch 21 mg TD DAILY 12/12/21 12/12/21 History 21mg/24hrs] Psyllium Husk [Metamucil] 1 packet G-TUBE DAILY 12/12/21 12/12/21 History Allergies Allergy/AdvReac Type Severity Reaction Status Date / Time No Known Allergies Allergy Verified 09/29/21 10:55 Exam - Constitutional Constitutional:: Present: no acute distress. Absent: comfortable - HENMT Exam HENMT: Present: normocephalic - Eye Exam Eyes:: Present: normal appearance both eyes and related structures - Neck Exam Neck:: Present: normal visual inspection - Respiratory Exam Respiratory:: Present: able to speak in complete sentences, respiratory distress, crackles. Absent: wheezing - Cardiovascular Exam Cardiac:: Present: S1, S2 - GI Exam GI:: Present: soft - Skin Exam Skin: Present: warm, no rash - Neurological Exam Neurological: Present: alert, awake - Extremities Exam Extremities: Present: no cyanosis, no clubbing, no edema Internal Medicine - CN: Reslt - Labs CBC & Chem 7: 12/12/21 05:26 12/12/21 05:26 Labs: Short CBC 12/11/21 12/12/21 Range/Units 18:43 05:26 WBC 12.1 H 14.5 H (4.8-10.8) K/mm3 Hgb 7.5 L 6.9 L (14.1-18.0) g/dL Hct 26.2 L 23.4 L (42.0-52.0) % Plt Count 345 314 (142-424) K/mm3 BMP 12/11/21 12/12/21 18:43 05:26 Sodium 134 L 133 L Potassium 4.1 4.5 Chloride 102 105 Carbon Dioxide 27 24 BUN 26 H 25 H Creatinine 0.50 L 0.50 L Glucose 98 138 H D Calcium 8.5 8.0 L Cardiac Enzymes 12/11/21 12/11/21 12/12/21 Range/Units 18:43 22:07 00:40 Troponin I 0.05 H 0.06 H 0.06 H (0.00-0.034) ng/ml Liver Function 12/11/21 Range/Units 18:43 Total Bilirubin 0.5 (0.2-1.3) mg/dl AST 44 (17-59) U/L ALT 35 (12-78) U/L Alkaline Phosphatase 92 (38-126) U/L Albumin 3.6 (3.5-5.0) g/dl Assessment and Plan (1) Severe anemia Status: Acute Category: Medical Code(
--- NOTE | 2021-12-12 11:01 | CT_ITS ---
FINAL REPORT TECHNIQUE: Thin section axial CT images were obtained from the lung apices to the upper abdomen. IV contrast was administered. MIP 3-D reformats were obtained. This study was performed with techniques to keep radiation doses as low as reasonably achievable (ALARA). Individualized dose reduction techniques using automated exposure control or adjustment of mA and/or kV according to the patient's size were employed. CLINICAL HISTORY: Hypoxia COMPARISON: January 15, 2018 FINDINGS: The heart size is normal. There is no adenopathy. There is no filling defect to suggest PE. There is no aortic dissection. There are new, moderate bilateral pleural effusions. There is bibasilar consolidation. There are diffuse interstitial opacities in both lungs probably due to acute edema or pneumonitis. Limited images of the upper abdomen demonstrate no acute abnormality. IMPRESSION: No PE. New, moderate bilateral pleural effusions. Diffuse interstitial opacities probably due to acute edema or pneumonitis. Reviewed, Interpreted and Dictated by Fuad Boo MD Transcribed by Juan Partida Authenticated by Fuad Boo MD on 12/12/2021 03:40:45 PM [facility]
--- NOTE | 2021-12-12 11:15 | HMH.ITSTN ---
spoke to nurse and stated his iv is in the hand and i requested a new iv to do the ct scan
--- NOTE | 2021-12-12 13:10 | DIET.NUTRFU ---
RD saw patient during rounds this morning, he is NPO d/t cancer and receives 100% via PEG along with all medications. Spoke to [facility] about his TF regimen, he normally takes Isosource 1.5 at 60ml/hr x22 hours with a flush of 150ml Q4H. His weight at group home was 105# on 11/20 and 106# on 12/05. Was just recently admitted to [facility] on 11/20. Upon visit he appeared underweight, bones protruding and cheeks sunken in. At increased risk for skin breakdown, none noted upon admit. Currently cardio and respiratory are consulted but when appropriate to start TF at Osmolite 1.2 at 20ml/hr with goal rate of 60ml/hr ATC to provide 1380ml/1656kcal and 93gm protein with 1026ml free water, once IVF discontinued start flush of 150ml Q6H for total fluid of 1626ml/day. Current labs were reviewed. Will followup on POC
--- NOTE | 2021-12-12 13:21 | PC.NURSE ---
Phone consent obtained from Veda Bardales ([phone]), pts poa for blood transfusion and dnr.
--- NOTE | 2021-12-12 16:56 | PC.NURSE ---
Pt is alert to self and place. Lungs have rhonchi and are diminished. He remains on 3L NC w/O2 sats measuring in the 90's. He has utilized a urinal at the bedside or has ambulated to the bathroom with assist x1. He had 1 episode of bowel incontinence. He remains NPO due to dysphagia, awaiting tube feed order to begin tube feed. Pt has denied any complaints thus far.
[2021-12-12 21:49] LABS: Hematocrit 39.7 % (42.0-52.0)
[2021-12-12 21:56] LABS: Hemoglobin 12.4 g/dL (14.1-18.0)
[2021-12-13] VITALS (38 sets, daily range): BP systolic 57–114; BP diastolic 27–76; PULSE 110–132; RESP 18–100; TEMP 36.6–37; O2SAT 87–100; BMI 18.5
--- NOTE | 2021-12-13 | IR_ITS ---
APPROVED REPORT Patient Location: Inpatient Diabetic Educator: ONEAL Cartagena RT (R) PROCEDURES Left heart catheterization Left ventriculogram Selective coronary angiogram INDICATION Severe mitral regurgitation, Tachycardia with congestive heart failure/pulmonary edema Informed consent was obtained prior to the procedure. COMPLICATIONS None Estimated Blood Loss: Less than 10 mls TECHNIQUE One percent lidocaine used to anesthetize the right anterior aspect of the wrist. The right radial artery was accessed via the Seldinger technique. A 6 Albanian sheath was placed in the right radial artery. 2.5 mg of verapamil, 800 mcg of nitroglycerin, 1mg Lidocaine and 5000 U Heparin were given through the arterial sheath. The papa catheter was also used to perform left heart catheterization, left ventriculogram and selective coronary angiogram. At the end of the procedure the sheath was removed good hemostasis was achieved using Traclet band, patient was transferred to the postop holding area in stable condition. ANGIOGRAPHIC RESULTS The left main artery Normal The left anterior descending artery Normal The circumflex artery Dominant normal The right coronary artery Nondominant normal The [facility] ventriculogram reveals Normal 65% The left ventricular end-diastolic pressure 25 mmHg IMPRESSION Normal coronary arteries Normal ejection fraction Elevated LVEDP PLAN 1. Given wide-open mitral regurgitation with elevated LVEDP I would recommend diuresing and providing afterload reduction medicine 2. I am not certain if patient is going to be a candidate for mitral clip given his other comorbidities. We can safely rule out ischemic mitral regurgitation with today's procedure. 3. If patient continues to deteriorate it may be reasonable to send the echocardiogram to [facility] and see if there are behavior analyst believes a mitral clip may provide some benefit 4. Patient's tachycardia could also be secondary due to other comorbidities Electronically signed by : Jet Cote MD 12/13/2021 10:50:44
--- NOTE | 2021-12-13 03:57 | PC.NURSE ---
Patient was placed on 8L high flow nasal canula due to decreasing 02 saturations, currently maintaining 92-93%. Patient has been restless and has not slept much this shift. Call banks in reach will continue to monitor.
[2021-12-13 05:34] LABS: Basophils % 0.2 % (0.1-2.0); Eosinophils % 0.1 % (0.1-12.0); Hematocrit 32.4 % (42.0-52.0); Lymphocytes # 0.8 K/mm3 (0.7-4.5); Lymphocytes % 4.6 % (10-50); Mean Corpuscular HGB Conc 31.1 g/dL (31.8-35.4); Mean Corpuscular Hemoglobin 29.6 pg (27.0-31.2); Mean Corpuscular Volume 95.1 fl (80-94); Mean Platelet Volume 9.6 fl (7.4-10.4); Monocytes % 5.9 % (1.7-9.3); Neutrophils # 14.5 K/mm3 (1.8-7.8); Neutrophils % 89.2 % (37.0-80.0); Platelet Count 295 K/mm3 (142-424); Red Blood Count 3.41 M/mm3 (4.60-6.20); Red Cell Distribution Width 18.6 % (11.5-17.5); White Blood Count 16.2 K/mm3 (4.8-10.8)
[2021-12-13 05:35] LABS: Chloride 106 mmol/L (98-107); Sodium 136 mmol/L (136-145)
[2021-12-13 05:36] LABS: Potassium 4.2 mmoL/L (3.5-5.1)
[2021-12-13 05:39] LABS: Anion Gap 9.2 mEq/L (5-15); Blood Urea Nitrogen 27 mg/dl (9-20); Calcium 7.9 mg/dl (8.4-10.2); Carbon Dioxide 25 mmol/L (22.0-30.0); Creatinine Clearance Estimated 64 mL/min (50-200); Estimated Glomerular Filt Rate 115 ml/min (>60); GFR (African American) 139 ML/MIN (>60); Glucose 127 mg/dl (74-100); MANUAL DIFFERENTIAL MANUAL DIFFERENTIAL (MANUAL DIFF)
[2021-12-13 05:46] LABS: Hemoglobin 10.1 g/dL (14.1-18.0)
[2021-12-13 06:34] LABS: Lymphocytes % 5 % (10-50); Monocytes % 2 % (2-9); Neutrophils % 92 % (42-76); Platelet Estimate Normal; Total Cells Counted 100
[2021-12-13 06:35] LABS: Stomatocytes 1+
[2021-12-13 06:37] LABS: Magnesium 2.2 mg/dl (1.6-2.3)
--- NOTE | 2021-12-13 07:54 | HMH.PNCARD ---
Subjective Date: 12/13/21 Time: 07:54 Principal diagnosis: Anemia, CHF, possible severe MR Interval history: 61-year-old white male in bed with head of bed about 45 degrees in a like position sleeping. Patient denies any chest pain but is still short of breath. Telemetry shows heart rate at around 130 bpm. Patient is on 8 L of oxygen by nasal cannula. He did receive 2 units of blood last evening with hemoglobin settling it above 10. Echocardiogram shows hyperdynamic ejection fraction of 65% with concern for severe mitral regurgitation. Images were difficult to interpret despite use of Definity contrast. Exam Vital signs and Labs for Last 24 Hours: Temp Pulse Resp BP Pulse Ox 98.0 F 121 H 28 H 95/66 L 93 L 12/13/21 04:00 12/13/21 05:37 12/13/21 05:37 12/13/21 04:00 12/13/21 05:31 Laboratory Results - last 24 hr 12/12/21 10:45: Blood Type O Positive, Antibody Screen Negative, Crossmatch (AHG) See Detail 12/12/21 21:25: Hgb 12.4 L D, Hct 39.7 L 12/13/21 05:19: WBC 16.2 H, RBC 3.41 L D, Hgb 10.1 L D, Hct 32.4 L, MCV 95.1 H, MCH 29.6, MCHC 31.1 L, RDW 18.6 H, Plt Count 295, MPV 9.6, Neut % (Auto) 89.2 H, Lymph % (Auto) 4.6 L, Real % (Auto) 5.9, Eos % (Auto) 0.1, Baso % (Auto) 0.2, Neut # (Auto) 14.5 H, Lymph # (Auto) 0.8, Real # (Auto) 1.0, Eos # (Auto) 0.0, Baso # (Auto) 0.0, Total Counted 100, Neutrophils % (Manual) 92 H, Lymphocytes % (Manual) 5 L, Monocytes % (Manual) 2, Basophils % (Manual) 1.0, Platelet Estimate Normal, RBC Morphology Not Reportable, Stomatocytes 1+ 12/13/21 05:19: Sodium 136, Potassium 4.2, Chloride 106, Carbon Dioxide 25, Anion Gap 9.2, BUN 27 H, Creatinine 0.70 D, Estimated Creat Clear 64, Estimated GFR 115, Est GFR ( Amer) 139 D, Glucose 127 H, Calcium 7.9 L 12/13/21 05:19: Magnesium 2.2 I & O for Last 24 hours: Intake & Output 12/10/21 12/11/21 12/12/21 12/13/21 11:59 11:59 11:59 11:59 Intake Total 240 / 240 1692 / 1692 Output Total 0 / 0 825 / 825 Balance 240 / 240 867 / 867 Weight 129 lb 7.992 oz 129 lb 4.8 oz - Constitutional mild distress, cachectic, chronically ill appearing - *Routine Respiratory Exam Present: CTA bilaterally, wheezes, crackles, diminished air movement - *Routine Cardiovascular Exam Present: murmur, tachycardia - *Routine Extremities Exam Absent: cyanosis, clubbing, edema - *Routine Neurological Exam Present: alert Progress Note: A&P (1) Chest pain Status: Acute (2) Atypical pneumonia Status: Acute (3) Severe anemia Status: Acute (4) Elevated troponin Status: Acute (5) Tachycardia Status: Acute (6) History of lung cancer Status: Acute (7) Elevated brain natriuretic peptide (BNP) level Status: Acute (8) Severe protein-calorie malnutrition Status: Acute (9) Cachectic Status: Acute (10) Severe sepsis with acute organ dysfunction Status: Acute (11) Severe mitral regurgitation Status: Acute (12) CHF due to valvular disease Status: Acute Assessment and Plan for All Diagnoses:: 1. CHF secondary to severe mitral regurgitation. 80 of Lasix given IV this a.m. with about 1 L of urine output since then. Discussed with Dr. Cote with recommendation to proceed with cardiac catheterization this a.m. for further evaluation. 2. Elevated troponins with suspected coronary artery disease, plan for cardiac catheterization today 3. Cachexia with malnutrition 4. Anemia of unknown etiology, status post blood transfusion x2 with hemoglobin now greater than 10 5. History of lung cancer and oropharyngeal cancer 6. COPD with tobacco use 7. Pneumonia, on abx. [facility] Pre-cath Criteria Clinical evaluation and indication for coronary angiography: valvular disease Patient is describing chest pain symtom as:: asymptomatic Clinical risk factors:: Severe MR on echo Tobacco use elevated troponins cachexia history of lung cancer How many antianginals is the patient taking?: 0
--- NOTE | 2021-12-13 09:15 | HMH.ACPN2 ---
Internal Medicine - PN: Subj *Date: 12/13/21 *Time: 09:15 Interval history: pt sitting up in bed states no c/o. Exam Vital signs and Labs for Last 24 Hours: Temp Pulse Resp BP Pulse Ox 97.8 F 124 H 22 92/65 L 96 12/13/21 08:00 12/13/21 08:00 12/13/21 08:00 12/13/21 08:00 12/13/21 08:00 Laboratory Results - last 24 hr 12/12/21 10:45: Blood Type O Positive, Antibody Screen Negative, Crossmatch (AHG) See Detail 12/12/21 21:25: Hgb 12.4 L D, Hct 39.7 L 12/13/21 05:19: WBC 16.2 H, RBC 3.41 L D, Hgb 10.1 L D, Hct 32.4 L, MCV 95.1 H, MCH 29.6, MCHC 31.1 L, RDW 18.6 H, Plt Count 295, MPV 9.6, Neut % (Auto) 89.2 H, Lymph % (Auto) 4.6 L, [place] % (Auto) 5.9, Eos % (Auto) 0.1, Baso % (Auto) 0.2, Neut # (Auto) 14.5 H, Lymph # (Auto) 0.8, [place] # (Auto) 1.0, Eos # (Auto) 0.0, Baso # (Auto) 0.0, Total Counted 100, Neutrophils % (Manual) 92 H, Lymphocytes % (Manual) 5 L, Monocytes % (Manual) 2, Basophils % (Manual) 1.0, Platelet Estimate Normal, RBC Morphology Not Reportable, Stomatocytes 1+ 12/13/21 05:19: Sodium 136, Potassium 4.2, Chloride 106, Carbon Dioxide 25, Anion Gap 9.2, BUN 27 H, Creatinine 0.70 D, Estimated Creat Clear 64, Estimated GFR 115, Est GFR ( Amer) 139 D, Glucose 127 H, Calcium 7.9 L 12/13/21 05:19: Magnesium 2.2 I & O for Last 24 hours: Intake & Output 12/10/21 12/11/21 12/12/21 12/13/21 11:59 11:59 11:59 11:59 Intake Total 240 / 240 1692 / 1692 Output Total 0 / 0 1125 / 1125 Balance 240 / 240 567 / 567 Weight 129 lb 7.992 oz 129 lb 4.8 oz - Constitutional no acute distress, thin - *Routine HEENT Exam Head: Present: normocephalic Eye: Present: PERRL ENT: Present: mucous membranes moist - *Routine Neck Exam Present: supple. Absent: lymphadenopathy - *Routine Respiratory Exam Present: rhonchi, wheezes - *Routine Cardiovascular Exam Present: tachycardia - *Routine Abdominal Exam Present: soft, normoactive bowel sounds. Absent: tenderness - *Routine Extremities Exam Absent: cyanosis, clubbing, edema - *Routine Skin Exam Present: warm. Absent: rash - *Routine Neurological Exam Present: alert Assessment and Plan (1) Chest pain Status: Acute Qualifiers: Chest pain type: unspecified Qualified Code(s): R07.9 - Chest pain, unspecified Category: Medical Code(s): R07.9 - Chest pain, unspecified (2) Atypical pneumonia Status: Acute Category: Medical Code(s): J18.9 - Pneumonia, unspecified organism (3) Severe anemia Status: Acute Category: Medical Code(s): D64.9 - Anemia, unspecified (4) Elevated troponin Status: Acute Category: Medical Code(s): R77.8 - Other specified abnormalities of plasma proteins (5) Tachycardia Status: Acute Category: Medical Code(s): R00.0 - Tachycardia, unspecified (6) History of lung cancer Status: Acute Category: Medical Code(s): Z85.118 - Personal history of other malignant neoplasm of bronchus and lung (7) Elevated brain natriuretic peptide (BNP) level Status: Acute Category: Medical Code(s): R79.89 - Other specified abnormal findings of blood chemistry (8) Severe protein-calorie malnutrition Status: Acute Category: Medical Code(s): E43 - Unspecified severe protein-calorie malnutrition (9) Cachectic Status: Acute Category: Medical Code(s): R64 - Cachexia (10) Severe sepsis with acute organ dysfunction Status: Acute Category: Medical Code(s): A41.9 - Sepsis, unspecified organism; R65.20 - Severe sepsis without septic shock (11) Severe mitral regurgitation Status: Acute Category: Medical Code(s): I34.0 - Nonrheumatic mitral (valve) insufficiency (12) CHF due to valvular disease Status: Acute Category: Medical Code(s): I50.9 - Heart failure, unspecified; I38 - Endocarditis, valve unspecified - Assessment and plan all Dx Assessment and Plan for all problems:: rounded with dr grewal all orders per dr grewal heart cath today
--- NOTE | 2021-12-13 10:15 | XR_ITS ---
FINAL REPORT CLINICAL HISTORY: increased oxygen need COMPARISON: December 11, 2021 FINDINGS: The patient is supine in positioning and the patient is rotated to the right. The heart size is normal. The mediastinum is normal. There is a moderate right pleural effusion which has increased in size. There is increased bilateral airspace infiltrates particularly at the right lung base and left perihilar region. There is no pneumothorax. There is no osseous abnormality. IMPRESSION: 1. Increased moderate right pleural effusion. 2. Increased bilateral airspace infiltrates. Reviewed, Interpreted and Dictated by Fuad Boo MD Transcribed by RENETTA Faith Authenticated by Fuad Boo MD on 12/13/2021 02:01:[address] [facility]
--- NOTE | 2021-12-13 10:22 | HMH.PULMPN ---
Internal Medicine - PN: Subj *Date: 12/13/21 *Time: 10:22 Interval history: Oxygen requirements continued to worsen overnight. Exam - Constitutional Constitutional:: Present: no acute distress, comfortable - HENMT Exam HENMT: Present: normocephalic, atraumatic - Eye Exam Eyes:: Present: normal appearance both eyes and related structures - Neck Exam Neck:: Present: normal visual inspection - Respiratory Exam Respiratory:: Present: respiratory distress. Absent: wheezing - Cardiovascular Exam Cardiac:: Present: S1, S2 - GI Exam GI:: Present: soft - Skin Exam Skin: Present: warm - Neurological Exam Neurological: Absent: alert, awake, normal cognition - Extremities Exam Extremities: Present: no cyanosis, no clubbing, no edema Assessment and Plan (1) Chest pain Status: Acute Qualifiers: Chest pain type: unspecified Qualified Code(s): R07.9 - Chest pain, unspecified Category: Medical Code(s): R07.9 - Chest pain, unspecified (2) Atypical pneumonia Status: Acute Category: Medical Code(s): J18.9 - Pneumonia, unspecified organism (3) Severe anemia Status: Acute Category: Medical Code(s): D64.9 - Anemia, unspecified (4) Elevated troponin Status: Acute Category: Medical Code(s): R77.8 - Other specified abnormalities of plasma proteins (5) Tachycardia Status: Acute Category: Medical Code(s): R00.0 - Tachycardia, unspecified (6) History of lung cancer Status: Acute Category: Medical Code(s): Z85.118 - Personal history of other malignant neoplasm of bronchus and lung (7) Elevated brain natriuretic peptide (BNP) level Status: Acute Category: Medical Code(s): R79.89 - Other specified abnormal findings of blood chemistry (8) Severe protein-calorie malnutrition Status: Acute Category: Medical Code(s): E43 - Unspecified severe protein-calorie malnutrition (9) Cachectic Status: Acute Category: Medical Code(s): R64 - Cachexia (10) Severe sepsis with acute organ dysfunction Status: Acute Category: Medical Code(s): A41.9 - Sepsis, unspecified organism; R65.20 - Severe sepsis without septic shock (11) Severe mitral regurgitation Status: Acute Category: Medical Code(s): I34.0 - Nonrheumatic mitral (valve) insufficiency (12) CHF due to valvular disease Status: Acute Category: Medical Code(s): I50.9 - Heart failure, unspecified; I38 - Endocarditis, valve unspecified - Assessment and plan all Dx Assessment and Plan for all problems:: #Acute hypoxic respiratory failure: #CAP: 61-year-old male completed his vaccination course for COVID-19 pneumonia (3 doses), current smoker greater than [id number] smoking history, presented to the hospital worsening respiratory distress and pulmonary was called for further management. Patient admits cough with productive phlegm for the last 3 weeks without any associated fevers or chills. He denies any lower extremity swelling. As per chart review, patient also has history of oropharyngeal cancer and lung cancer COVID-19 and flu PCR negative. Evidence of leukocytosis. Afebrile. BNP elevated. Chest x-ray admission bilateral diffuse infiltrates predominant right lower lobe involvement along with evidence of volume overload. CTA performed on admission did not show any evidence of pulmonary emboli however showed bilateral upper lobe predominant airspace disease and interstitial edema along with bilateral moderate pleural effusions, Rt > Lt. Echocardiogram showed hyperdynamic heart normal EF with severe MR. Interval update: Worsening leukocytosis. Worsening respiratory status with increasing oxygen requirements, saturating 92 to 94% this morning. Patient appears more lethargic than yesterday. We will closely monitor. Patient scheduled for left heart cath today. He also received 80 mg of IV Lasix today. Will discontinue maintenance fluids. Blood pressure borderline with 95/60. Status post 2 uni
[2021-12-13 10:36] LABS: Adenovirus,PCR Not Detected (NotDetected); Bordetella Pertussis Not Detected (NotDetected); Chlamydophila Pneumoniae, PCR Not Detected (NotDetected); Coronavirus 19, PCR Not Detected (NotDetected); Coronavirus 229E Not Detected (NotDetected); Coronavirus NL63 Not Detected (NotDetected); Coronavirus OC43 Not Detected (NotDetected); Coronovirus HKU1,PCR Not Detected (NotDetected); Human Metapneumovirus Not Detected (NotDetected); Influenza A, PCR Not Detected (NotDetected); Influenza AH1, 2009 Not Detected (NotDetected); Influenza AH1, PCR Not Detected (NotDetected); Influenza AH3,PCR Not Detected (NotDetected); Influenza B, PCR Not Detected (NotDetected); Mycoplasma Pneumoniae, PCR Not Detected (NotDetected); Parainfluenza 1, PCR Not Detected (NotDetected); Parainfluenza 2, PCR Not Detected (NotDetected); Parainfluenza 3, PCR Not Detected (NotDetected); Parainfluenza 4, PCR Not Detected (NotDetected); Respiratory Syncytial Virus Not Detected (NotDetected); Rhinovirus/Enterovirus Not Detected (NotDetected)
--- NOTE | 2021-12-13 11:39 | PC.NURSE ---
pt came back from cathlab 1125 with BP 60/30s. Updated Dr. Jeter, who ordered 500mL LR bolus, start Levo gtt, STAT ABG, and STAT blood cultures. Pharmacy updated, RTs updated, and orders entered.
--- NOTE | 2021-12-13 11:49 | PC.NURSE ---
BP 60/30. Levo gtt started @ 10mcg/min.
--- NOTE | 2021-12-13 12:20 | PC.NURSE ---
IV abx not given this morning as pt was in cathlab. Report given to Boyd Hanna RN @ [id number] as pt is now a SD pt. She will give IV abx (Azithromycin and Rocephin).
--- NOTE | 2021-12-13 13:02 | PC.NURSE ---
received report from joan Cantu Rn at [phone]
--- NOTE | 2021-12-13 15:47 | DIET.NUTRFU ---
Spoke to nursing for status update, patient has shown a decline since return from cardio cath. Not feasible at this time to start TF. He continues to receive IVF and minimal flush with medications.
--- NOTE | 2021-12-13 18:11 | PC.NURSE ---
pt on levo drip when report receivied. drip at 10mcg. at this time drip increased to 12mcg
--- NOTE | 2021-12-13 18:53 | PC.NURSE ---
pt lung sounds reassessed again at this time. they remain diminished. minimal rhonchi noted. scattered crackles. slight increased work of breathing noted. pt remains on levo drip at 12mcg.
--- NOTE | 2021-12-13 23:55 | PC.NURSE ---
Consulted MD Ng about pt triggering sepsis due to prior pna and priorly on PO antibiotics. No new orders.
[2021-12-14] VITALS (23 sets, daily range): BP systolic 68–127; BP diastolic 43–75; PULSE 116–127; RESP 20–28; TEMP 36.4–36.6; O2SAT 93–100; BMI 18.5
--- NOTE | 2021-12-14 05:25 | PC.NURSE ---
Pt is currently on Levophed gtt@ 10 mcg/min. O2 titrated from 6L NC to 3L NC this AM. Pt tolerating well. Pt denies any discomfort. He has been confused at times this shift. Has been up to chair x1. Peg tube patent. VSS. Safety measures in place. Will continue to monitor.
[2021-12-14 05:52] LABS: Basophils % 0.2 % (0.1-2.0); Eosinophils % 0.1 % (0.1-12.0); Hematocrit 32.4 % (42.0-52.0); Hemoglobin 10.2 g/dL (14.1-18.0); Lymphocytes # 0.8 K/mm3 (0.7-4.5); Lymphocytes % 5.8 % (10-50); Mean Corpuscular HGB Conc 31.5 g/dL (31.8-35.4); Mean Corpuscular Hemoglobin 29.7 pg (27.0-31.2); Mean Corpuscular Volume 94.3 fl (80-94); Mean Platelet Volume 8.7 fl (7.4-10.4); Monocytes # 0.9 K/mm3 (0.1-1.0); Monocytes % 6.2 % (1.7-9.3); Neutrophils # 12.5 K/mm3 (1.8-7.8); Neutrophils % 87.7 % (37.0-80.0); Platelet Count 306 K/mm3 (142-424); Red Blood Count 3.44 M/mm3 (4.60-6.20); Red Cell Distribution Width 18.3 % (11.5-17.5); White Blood Count 14.2 K/mm3 (4.8-10.8)
[2021-12-14 06:00] LABS: Chloride 104 mmol/L (98-107); Potassium 3.5 mmoL/L (3.5-5.1); Sodium 137 mmol/L (136-145)
[2021-12-14 06:03] LABS: Blood Urea Nitrogen 24 mg/dl (9-20); Creatinine Clearance Estimated 64 mL/min (50-200); Estimated Glomerular Filt Rate 115 ml/min (>60); GFR (African American) 139 ML/MIN (>60)
[2021-12-14 06:04] LABS: Anion Gap 10.5 mEq/L (5-15); Calcium 8.3 mg/dl (8.4-10.2); Carbon Dioxide 26 mmol/L (22.0-30.0); Glucose 103 mg/dl (74-100)
[2021-12-14 06:14] LABS: MANUAL DIFFERENTIAL MANUAL DIFFERENTIAL (MANUAL DIFF)
--- NOTE | 2021-12-14 07:07 | PC.NURSE ---
Attempted to titrate Levophed gtt down. Was unsuccessful. Levophed infusing @ 12 mcg/min.
[2021-12-14 07:19] LABS: Lymphocytes % 17 % (10-50); Monocytes % 5 % (2-9); Neutrophils % 78 % (42-76); Platelet Estimate Normal; RBC Morphology Normal; Total Cells Counted 100
--- NOTE | 2021-12-14 08:31 | HMH.PNCARD ---
Subjective Date: 12/14/21 Time: 08:31 Principal diagnosis: Anemia, CHF, possible severe MR Interval history: 61 yo WM, alert in bed in NAD. Still on Levophed at 12 mcg/kg/min with SBP in the 90's mm Hg Telemetry is sinus tachycardia in the 112 the 120 bpm range Exam Vital signs and Labs for Last 24 Hours: Temp Pulse Resp BP Pulse Ox 97.6 F 123 H 22 96/62 L 100 12/14/21 04:00 12/14/21 08:00 12/14/21 08:00 12/14/21 08:00 12/14/21 08:00 Laboratory Results - last 24 hr 12/13/21 10:20: SARS-CoV-2 (PCR) Not detected, Influenza A Untype (PCR) Not detected, Influenza Type B (PCR) Not detected 12/13/21 10:20: Chlamy pneumoniae PCR Not detected, Adenovirus (PCR) Not detected, B. pertussis DNA (PCR) Not detected, Coronavirus OC43 (PCR) Not detected, Coronavirus HKU1 (PCR) Not detected, Coronavirus 229E (PCR) Not detected, Coronavirus NL63 (PCR) Not detected, Human Metapneumovir PCR Not detected, Influenza A (H1) PCR Not detected, Influ A (H1N1/09) PCR Not detected, Influenza A (H3) PCR Not detected, Influenza Type A (PCR) Not detected, Influenza Type B (PCR) Not detected, M. pneumoniae (PCR) Not detected, Parainfluenza 1 (PCR) Not detected, Parainfluenza 2 (PCR) Not detected, Parainfluenza 3 (PCR) Not detected, Parainfluenza 4 (PCR) Not detected, RSV (PCR) Not detected, Entero/Rhino (PCR) Not detected 12/14/21 05:24: WBC 14.2 H, RBC 3.44 L, Hgb 10.2 L, Hct 32.4 L, MCV 94.3 H, MCH 29.7, MCHC 31.5 L, RDW 18.3 H, Plt Count 306, MPV 8.7, Neut % (Auto) 87.7 H, Lymph % (Auto) 5.8 L, [place] % (Auto) 6.2, Eos % (Auto) 0.1, Baso % (Auto) 0.2, Neut # (Auto) 12.5 H, Lymph # (Auto) 0.8, [place] # (Auto) 0.9, Eos # (Auto) 0.0, Baso # (Auto) 0.0, Total Counted 100, Neutrophils % (Manual) 78 H, Lymphocytes % (Manual) 17, Monocytes % (Manual) 5, Platelet Estimate Normal, RBC Morphology Normal 12/14/21 05:24: Sodium 137, Potassium 3.5, Chloride 104, Carbon Dioxide 26, Anion Gap 10.5, BUN 24 H, Creatinine 0.70, Estimated Creat Clear 64, Estimated GFR 115, Est GFR ( Amer) 139, Glucose 103 H, Calcium 8.3 L I & O for Last 24 hours: Intake & Output 12/11/21 12/12/21 12/13/21 12/14/21 11:59 11:59 11:59 11:59 Intake Total 240 / 240 2633 / 2633 180.6 / 180.6 Output Total 0 / 0 1450 / 1450 500 / 500 Balance 240 / 240 1183 / 1183 -319.4 / -319.4 Weight 129 lb 7.992 oz 129 lb 4.8 oz 129 lb 4.782 oz - Constitutional no acute distress - *Routine Respiratory Exam Present: rhonchi, diminished air movement - *Routine Cardiovascular Exam Present: tachycardia - *Routine Extremities Exam Absent: cyanosis, clubbing, edema Progress Note: A&P (1) Chest pain Status: Acute (2) Atypical pneumonia Status: Acute (3) Severe anemia Status: Acute (4) Elevated troponin Status: Acute (5) Tachycardia Status: Acute (6) History of lung cancer Status: Acute (7) Elevated brain natriuretic peptide (BNP) level Status: Acute (8) Severe protein-calorie malnutrition Status: Acute (9) Cachectic Status: Acute (10) Severe sepsis with acute organ dysfunction Status: Acute (11) Severe mitral regurgitation Status: Acute (12) CHF due to valvular disease Status: Acute Assessment and Plan for All Diagnoses:: Discussed with Dr. Cote. Poor surgical candidate and limited options for medical treatment. History of endocarditis diagnosis recently at . Will try to obtain echo for review with Dr. CASTELLON tomorrow to see if FRANSISCO would add any helpful information. Will start captopril 6.25 mg TID Stop nitrates.
--- NOTE | 2021-12-14 09:04 | HMH.ACPN2 ---
Internal Medicine - PN: Subj *Date: 12/14/21 *Time: 17:05 Interval history: 61-year-old male patient sitting up in bed he denies any chest pain or shortness of breath during the night. Current oxygenation is 96% on 2 L per nasal cannula. Levophed is still 12 mcg/kg/min with systolic blood pressure in the 90s. He has spilled his urinal several times and we will Place Raygoza for accurate input/output Exam Vital signs and Labs for Last 24 Hours: Temp Pulse Resp BP Pulse Ox 97.6 F 123 H 22 96/62 L 100 12/14/21 04:00 12/14/21 08:00 12/14/21 08:00 12/14/21 08:00 12/14/21 08:00 Laboratory Results - last 24 hr 12/13/21 10:20: SARS-CoV-2 (PCR) Not detected, Influenza A Untype (PCR) Not detected, Influenza Type B (PCR) Not detected 12/13/21 10:20: Chlamy pneumoniae PCR Not detected, Adenovirus (PCR) Not detected, B. pertussis DNA (PCR) Not detected, Coronavirus OC43 (PCR) Not detected, Coronavirus HKU1 (PCR) Not detected, Coronavirus 229E (PCR) Not detected, Coronavirus NL63 (PCR) Not detected, Human Metapneumovir PCR Not detected, Influenza A (H1) PCR Not detected, Influ A (H1N1/09) PCR Not detected, Influenza A (H3) PCR Not detected, Influenza Type A (PCR) Not detected, Influenza Type B (PCR) Not detected, M. pneumoniae (PCR) Not detected, Parainfluenza 1 (PCR) Not detected, Parainfluenza 2 (PCR) Not detected, Parainfluenza 3 (PCR) Not detected, Parainfluenza 4 (PCR) Not detected, RSV (PCR) Not detected, Entero/Rhino (PCR) Not detected 12/14/21 05:24: WBC 14.2 H, RBC 3.44 L, Hgb 10.2 L, Hct 32.4 L, MCV 94.3 H, MCH 29.7, MCHC 31.5 L, RDW 18.3 H, Plt Count 306, MPV 8.7, Neut % (Auto) 87.7 H, Lymph % (Auto) 5.8 L, [place] % (Auto) 6.2, Eos % (Auto) 0.1, Baso % (Auto) 0.2, Neut # (Auto) 12.5 H, Lymph # (Auto) 0.8, [place] # (Auto) 0.9, Eos # (Auto) 0.0, Baso # (Auto) 0.0, Total Counted 100, Neutrophils % (Manual) 78 H, Lymphocytes % (Manual) 17, Monocytes % (Manual) 5, Platelet Estimate Normal, RBC Morphology Normal 12/14/21 05:24: Sodium 137, Potassium 3.5, Chloride 104, Carbon Dioxide 26, Anion Gap 10.5, BUN 24 H, Creatinine 0.70, Estimated Creat Clear 64, Estimated GFR 115, Est GFR ( Amer) 139, Glucose 103 H, Calcium 8.3 L I & O for Last 24 hours: Intake & Output 12/11/21 12/12/21 12/13/21 12/14/21 23:59 23:59 23:59 23:59 Intake Total 1932 / 1932 1121.6 / 1121.6 Output Total 825 / 825 1125 / 1125 Balance 1107 / 1107 -3.4 / -3.4 Weight 105 lb 13.15 oz 129 lb 7.992 oz 129 lb 4.8 oz 129 lb 4.782 oz - Constitutional no acute distress, chronically ill appearing - *Routine HEENT Exam Head: Present: normocephalic Eye: Present: EOMI ENT: Present: mucous membranes moist - *Routine Neck Exam Present: trachea midline. Absent: tracheal deviation - *Routine Respiratory Exam Present: crackles. Absent: accessory muscle use - *Routine Cardiovascular Exam Present: murmur, tachycardia - *Routine Abdominal Exam Present: soft, normoactive bowel sounds. Absent: tenderness, firm - *Routine Extremities Exam Present: pulses intact. Absent: cyanosis - *Routine Skin Exam Present: intact, dry. Absent: cyanosis, erythema - *Routine Neurological Exam Present: alert, altered mental status - Routine Psychiatric Exam Present: unable to assess Assessment and Plan (1) Chest pain Status: Acute Qualifiers: Chest pain type: unspecified Qualified Code(s): R07.9 - Chest pain, unspecified Category: Medical Code(s): R07.9 - Chest pain, unspecified (2) Atypical pneumonia Status: Acute Category: Medical Code(s): J18.9 - Pneumonia, unspecified organism (3) Severe anemia Status: Acute Category: Medical Code(s): D64.9 - Anemia, unspecified (4) Elevated troponin Status: Acute Category: Medical Code(s): R77.8 - Other specified abnormalities of plasma proteins (5) Tachycardia Status: Acute Category: Medical Code(s): R00.0 - Tachycardia, unspecified (6) History of lung cancer Stat
--- NOTE | 2021-12-14 09:14 | HMH.PULMPN ---
Internal Medicine - PN: Subj *Date: 12/14/21 *Time: 10:39 Interval history: No acute respiratory events overnight. Exam - Constitutional Constitutional:: Present: no acute distress, comfortable - HENMT Exam HENMT: Present: normocephalic - Eye Exam Eyes:: Present: normal appearance both eyes and related structures - Neck Exam Neck:: Present: normal visual inspection - Respiratory Exam Respiratory:: Present: able to speak in complete sentences, respiratory distress. Absent: wheezing - Cardiovascular Exam Cardiac:: Present: S1, S2 - GI Exam GI:: Present: soft - Skin Exam Skin: Present: warm, no rash - Neurological Exam Neurological: Present: alert, awake - Extremities Exam Extremities: Present: no cyanosis, no clubbing Assessment and Plan (1) Chest pain Status: Acute Qualifiers: Chest pain type: unspecified Qualified Code(s): R07.9 - Chest pain, unspecified Category: Medical Code(s): R07.9 - Chest pain, unspecified (2) Atypical pneumonia Status: Acute Category: Medical Code(s): J18.9 - Pneumonia, unspecified organism (3) Severe anemia Status: Acute Category: Medical Code(s): D64.9 - Anemia, unspecified (4) Elevated troponin Status: Acute Category: Medical Code(s): R77.8 - Other specified abnormalities of plasma proteins (5) Tachycardia Status: Acute Category: Medical Code(s): R00.0 - Tachycardia, unspecified (6) History of lung cancer Status: Acute Category: Medical Code(s): Z85.118 - Personal history of other malignant neoplasm of bronchus and lung (7) Elevated brain natriuretic peptide (BNP) level Status: Acute Category: Medical Code(s): R79.89 - Other specified abnormal findings of blood chemistry (8) Severe protein-calorie malnutrition Status: Acute Category: Medical Code(s): E43 - Unspecified severe protein-calorie malnutrition (9) Cachectic Status: Acute Category: Medical Code(s): R64 - Cachexia (10) Severe sepsis with acute organ dysfunction Status: Acute Category: Medical Code(s): A41.9 - Sepsis, unspecified organism; R65.20 - Severe sepsis without septic shock (11) Severe mitral regurgitation Status: Acute Category: Medical Code(s): I34.0 - Nonrheumatic mitral (valve) insufficiency (12) CHF due to valvular disease Status: Acute Category: Medical Code(s): I50.9 - Heart failure, unspecified; I38 - Endocarditis, valve unspecified - Assessment and plan all Dx Assessment and Plan for all problems:: #Acute hypoxic respiratory failure: #CAP: #Bilateral pleural effusions: # H/O Mitral valve Endocarditis: ## History of group B Septecemia: 61-year-old male completed his vaccination course for COVID-19 pneumonia (3 doses), current smoker greater than [id number] smoking history, presented to the hospital worsening respiratory distress and pulmonary was called for further management. Patient admits cough with productive phlegm for the last 3 weeks without any associated fevers or chills. He denies any lower extremity swelling. COVID-19, flu PCR negative and comprehensive respiratory viral PCR negative . Evidence of leukocytosis. Afebrile. BNP elevated. Chest x-ray admission bilateral diffuse infiltrates predominant right lower lobe involvement along with evidence of volume overload. CTA performed on admission did not show any evidence of pulmonary emboli however showed bilateral upper lobe predominant airspace disease and interstitial edema along with bilateral moderate pleural effusions, Rt > Lt Echocardiogram showed hyperdynamic heart normal EF with severe MR. Left heart cath no ischemic heart disease,records from OSH reviewed, patient has a recent diagnosis of group B septicemia and mitral valve endocarditis status post completion of 4 weeks of IV treatment with ceftriaxone with a completion date on 12/02/2021. Given history of endocarditis MR is likely 2[facility]2 [facility]
--- NOTE | 2021-12-14 10:16 | PC.NURSE ---
Dr Jeter at bedside at this time. MD states to adjust parameters for Levophed drip. States pt MAP should remain above 65. Levophed drip turned down to 10mcg
--- NOTE | 2021-12-14 10:32 | PC.NURSE ---
Spoke with Dr Jeter, notified him that the medication Isosorbide Dinitrate cannot be crushed. pt is NPO r/t throat cancer and has a PEG tube. Dr Jeter states that he will order new med.
--- NOTE | 2021-12-14 15:27 | PC.NURSE ---
levo drip turned from 10mcg to 8 mcg at approx 1200. drip increased from 8mcg to 10 mcg at 1500
--- NOTE | 2021-12-14 16:33 | PC.NURSE ---
Patient is alert to self and location and is aware that Meryl is currently the president. Lung sounds are clear, bowel sounds are hypo active. pt had a Condom catheter in place for a short amount of time, but with his repeated sit to lay movements it became dislodged. it was verified with Radames Moran RN that the pt is agreeable to have a central line placed r/t poor venous access. Roldan Lora gave consult order at approx 1350. nad noted at this time.
--- NOTE | 2021-12-14 18:14 | XR_ITS ---
PROCEDURE INFORMATION: Exam: XR Chest Exam date and time: 12/14/2021 6:14 PM Age: 61 years old Clinical indication: Chest wall pain; Patient HX: Attempted line placement, now with severe chest pain. R/O pneumothorax. ; Additional info: Central line placement TECHNIQUE: Imaging protocol: XR of the chest. Views: 1 view. COMPARISON: CR XR CHEST PORTABLE 12/13/2021 12:14 PM FINDINGS: Lungs: Diffuse bilateral airspace opacities. Pleural spaces: Right-sided pleural effusion. No pneumothorax. Heart/Mediastinum: Unremarkable. No cardiomegaly. Bones/joints: Unremarkable. IMPRESSION: Bilateral pneumonia and right-sided pleural effusion.
--- NOTE | 2021-12-14 18:23 | HMH.GSCON ---
*Admission Date: 12/11/21 *Reason for consult:: Central line *History of present illness: Surgical services consult for central placement due to inadequate venous access. Review of Systems - Review of Systems Review of systems:: unable to obtain - *Neurologic Denies abnormal hearing, Denies dizziness, Denies headache(s) [facility] History Medical History: Reports:: Cancer Denies:: Diabetes Mellitus Type 1, Diabetes Mellitus Type 2, MRSA *Have you ever received a pneumonia vaccine?: No *Have you received a flu vaccine this season?: No Other Surgeries: Yes: Other Amputation: No Fractures: No - *Social History Last grade of school completed: High school graduate Smoking Status: Former smoker Tobacco Type: cigarettes # Packs/Day (cigarettes): 1 Alcohol Intake: never Substance Use Type: denies use *Occupational Status:: disabled Housing: [facility] Household Members: other *Travel in the last 8 weeks: None Family Hx:: Cancer Meds Home Medications Medication Instructions Recorded Confirmed Type Levothyroxine Sodium 100 mcg G-TUBE DAILY 10/30/21 12/12/21 History [Levothyroxine 100mcg (0.1MG) Tab] Acetaminophen [Acetaminophen Extra 500 mg G-TUBE Q4HP PRN 12/12/21 12/12/21 History Strength] Nicotine [Nicotine Patch 21 mg TD DAILY 12/12/21 12/12/21 History 21mg/24hrs] Psyllium Husk [Metamucil] 1 packet G-TUBE DAILY 12/12/21 12/12/21 History Allergies Allergy/AdvReac Type Severity Reaction Status Date / Time No Known Allergies Allergy Verified 09/29/21 10:55 Exam Vital signs and Labs for Last 24 Hours: Temp Pulse Resp BP Pulse Ox 97.9 F 118 H 22 85/57 L 100 12/14/21 12:00 12/14/21 16:00 12/14/21 16:00 12/14/21 16:00 12/14/21 16:00 Laboratory Results - last 24 hr 12/14/21 05:24: WBC 14.2 H, RBC 3.44 L, Hgb 10.2 L, Hct 32.4 L, MCV 94.3 H, MCH 29.7, MCHC 31.5 L, RDW 18.3 H, Plt Count 306, MPV 8.7, Neut % (Auto) 87.7 H, Lymph % (Auto) 5.8 L, [place] % (Auto) 6.2, Eos % (Auto) 0.1, Baso % (Auto) 0.2, Neut # (Auto) 12.5 H, Lymph # (Auto) 0.8, [place] # (Auto) 0.9, Eos # (Auto) 0.0, Baso # (Auto) 0.0, Total Counted 100, Neutrophils % (Manual) 78 H, Lymphocytes % (Manual) 17, Monocytes % (Manual) 5, Platelet Estimate Normal, RBC Morphology Normal 12/14/21 05:24: Sodium 137, Potassium 3.5, Chloride 104, Carbon Dioxide 26, Anion Gap 10.5, BUN 24 H, Creatinine 0.70, Estimated Creat Clear 64, Estimated GFR 115, Est GFR ( Amer) 139, Glucose 103 H, Calcium 8.3 L I & O for Last 24 hours: Intake & Output 12/12/21 12/13/21 12/14/21 12/15/21 11:59 11:59 11:59 11:59 Intake Total 240 / 240 2633 / 2633 367.65 / 367.65 Output Total 0 / 0 1450 / 1450 500 / 500 0 / 0 Balance 240 / 240 1183 / 1183 -132.35 / -132.35 0 / 0 Weight 129 lb 7.992 oz 129 lb 4.8 oz 129 lb 4.782 oz - Constitutional no acute distress - *Routine Cardiovascular Exam Present: tachycardia Results - Labs 12/14/21 05:24 12/14/21 05:24 Laboratory Results - last 24 hr 12/14/21 05:24: WBC 14.2 H, RBC 3.44 L, Hgb 10.2 L, Hct 32.4 L, MCV 94.3 H, MCH 29.7, MCHC 31.5 L, RDW 18.3 H, Plt Count 306, MPV 8.7, Neut % (Auto) 87.7 H, Lymph % (Auto) 5.8 L, [place] % (Auto) 6.2, Eos % (Auto) 0.1, Baso % (Auto) 0.2, Neut # (Auto) 12.5 H, Lymph # (Auto) 0.8, [place] # (Auto) 0.9, Eos # (Auto) 0.0, Baso # (Auto) 0.0, Total Counted 100, Neutrophils % (Manual) 78 H, Lymphocytes % (Manual) 17, Monocytes % (Manual) 5, Platelet Estimate Normal, RBC Morphology Normal 12/14/21 05:24: Sodium 137, Potassium 3.5, Chloride 104, Carbon Dioxide 26, Anion Gap 10.5, BUN 24 H, Creatinine 0.70, Estimated Creat Clear 64, Estimated GFR 115, Est GFR ( Amer) 139, Glucose 103 H, Calcium 8.3 L Assessment and Plan (1) Chest pain Status: Acute Qualifiers: Chest pain type: unspecified Qualified Code(s): R07.9 - Chest pain, unspecified Category: Medical Code(s): R07.9 - Chest pain, unspecified (2) Atypical pneumonia Status: Acute C
--- NOTE | 2021-12-14 18:26 | P.OP_ITS ---
Date of procedure: 12/14/21 Pre-op Diagnosis:: Inadequate venous access Post-op Diagnosis:: Same Procedure performed:: Attempted central line placement (central line not placed secondary to patient developing complaints of chest pain before venous access obtained...initial access/blood return was arterial) Surgeon:: Alphonse Peralta MD Anesthesia: local Estimated blood loss (mL): 10 Operative findings:: Initial attempt at left internal jugular vein access found to be arterial Initial attempts at left subclavian vein access found to be arterial Additional attempts not made secondary to patient developing chest pain Operative note:: After informed consent was obtained the patient was maintained in the supine position. His left neck and chest were prepped and draped in a sterile fashion. After infiltration local anesthetic attempts to access the left internal jugular vein were made. Arterial flow confirmed. Nonexpanding hematoma devel oped. Pressure dressing applied to achieve hemostasis. The decision was made to proceed with subclavian vein access. Initial attempt at subclavian vein access also resulted in arterial flow. Subsequently, the patient developed complaints of chest pain and additional attempts were deemed unwarranted. Chest x-ray pending. Condition: other (Guarded) Disposition: no change Specimens:: None Complications:: Central line not placed (see findings above)
[2021-12-15] VITALS (18 sets, daily range): BP systolic 84–112; BP diastolic 54–73; PULSE 63–123; RESP 20–28; TEMP 36.3–36.5; O2SAT 88–100; BMI 18.5
--- NOTE | 2021-12-15 04:57 | PC.NURSE ---
Pt has slept at intervals this shift. Has c/o discomfort to DSG on (L) side of neck and arm this shift. Pt has sat up on side of bed multiple times. Pt is currently on 3L O2 NC. Sats decline at times. Pt recovers quickly. Levophed titrated up to 16 mcg/min this shift and currently infusing. Pt was given a bed bath. Bed linens changed. VSS at this time. Will continue to monitor.
[2021-12-15 06:53] LABS: Basophils % 0.2 % (0.1-2.0); Eosinophils % 0.1 % (0.1-12.0); Hematocrit 31.4 % (42.0-52.0); Hemoglobin 9.7 g/dL (14.1-18.0); Lymphocytes # 0.8 K/mm3 (0.7-4.5); Mean Corpuscular HGB Conc 30.8 g/dL (31.8-35.4); Mean Corpuscular Hemoglobin 29.2 pg (27.0-31.2); Mean Platelet Volume 8.9 fl (7.4-10.4); Monocytes # 0.9 K/mm3 (0.1-1.0); Monocytes % 6.5 % (1.7-9.3); Neutrophils # 11.4 K/mm3 (1.8-7.8); Neutrophils % 87.2 % (37.0-80.0); Platelet Count 316 K/mm3 (142-424); Red Cell Distribution Width 18.2 % (11.5-17.5); White Blood Count 13.1 K/mm3 (4.8-10.8)
[2021-12-15 06:56] LABS: MANUAL DIFFERENTIAL MANUAL DIFFERENTIAL (MANUAL DIFF)
[2021-12-15 07:01] LABS: Chloride 105 mmol/L (98-107)
[2021-12-15 07:02] LABS: Potassium 3.2 mmoL/L (3.5-5.1); Sodium 138 mmol/L (136-145)
[2021-12-15 07:04] LABS: Blood Urea Nitrogen 22 mg/dl (9-20); Creatinine Clearance Estimated 64 mL/min (50-200); Estimated Glomerular Filt Rate 115 ml/min (>60); GFR (African American) 139 ML/MIN (>60)
[2021-12-15 07:05] LABS: Anion Gap 11.2 mEq/L (5-15); Calcium 8.2 mg/dl (8.4-10.2); Carbon Dioxide 25 mmol/L (22.0-30.0); Glucose 105 mg/dl (74-100)
--- NOTE | 2021-12-15 07:20 | P.OP_ITS ---
Date of procedure: 12/15/21 Pre-op Diagnosis:: Inadequate venous access Post-op Diagnosis:: Same Procedure performed:: Central line placement (right internal jugular) Surgeon:: Alphonse Peralta MD Anesthesia: local Estimated blood loss (mL): 5 Operative findings:: Line anchored at 15 cm All ports flushed without difficulty Operative note:: After informed consent was obtained the patient was maintained in the supine position. His right neck and chest were prepped and draped in a sterile fashion. He was then transferred to a Trendelenburg position. After infiltration local anesthetic a 7 [place] triple-lumen catheter was placed in the right internal jugular vein utilizing a modified Salinger technique. All ports flushed without difficulty. Chest x-ray pending. Condition: other (Guarded) Disposition: no change Specimens:: None Complications:: No immediate. Chest x-ray pending.
--- NOTE | 2021-12-15 07:22 | XR_ITS ---
FINAL REPORT CLINICAL HISTORY: central line placement. COMPARISON: One day prior FINDINGS: There has been interval placement of a right IJ catheter that terminates in the SVC. The heart size is normal. The mediastinum is normal. There are mixed interstitial and airspace opacities throughout both lungs. A moderate right pleural effusion has increased. The interstitial opacities more extensive than on the prior exam. There is no pneumothorax. There is no osseous abnormality. IMPRESSION: Interval placement of a right IJ central line without pneumothorax. Worsening interstitial opacity probably due to increasing edema. Increasing moderate right pleural effusion. Reviewed, Interpreted and Dictated by Fuad Boo MD Transcribed by Juan Partida Authenticated by Fuad Boo MD on 12/15/2021 07:56:02 AM [facility]
--- NOTE | 2021-12-15 08:46 | HMH.PULMPN ---
Internal Medicine - PN: Subj *Date: 12/15/21 *Time: 10:43 Interval history: No acute respiratory events overnight. Patient respiratory status remained stable. Exam - Constitutional Constitutional:: Present: no acute distress, comfortable - HENMT Exam HENMT: Present: normocephalic, atraumatic - Eye Exam Eyes:: Present: normal appearance both eyes and related structures - Neck Exam Neck:: Present: normal visual inspection - Respiratory Exam Respiratory:: Present: able to speak in complete sentences, no respiratory distress, crackles - Cardiovascular Exam Cardiac:: Present: S1, S2 - GI Exam GI:: Present: soft - Skin Exam Skin: Present: warm, no rash - Neurological Exam Neurological: Present: alert, awake. Absent: normal cognition - Extremities Exam Extremities: Present: no cyanosis, no clubbing Assessment and Plan (1) Chest pain Status: Acute Qualifiers: Chest pain type: unspecified Qualified Code(s): R07.9 - Chest pain, unspecified Category: Medical Code(s): R07.9 - Chest pain, unspecified (2) Atypical pneumonia Status: Acute Category: Medical Code(s): J18.9 - Pneumonia, unspecified organism (3) Severe anemia Status: Acute Category: Medical Code(s): D64.9 - Anemia, unspecified (4) Elevated troponin Status: Acute Category: Medical Code(s): R77.8 - Other specified abnormalities of plasma proteins (5) Tachycardia Status: Acute Category: Medical Code(s): R00.0 - Tachycardia, unspecified (6) History of lung cancer Status: Acute Category: Medical Code(s): Z85.118 - Personal history of other malignant neoplasm of bronchus and lung (7) Elevated brain natriuretic peptide (BNP) level Status: Acute Category: Medical Code(s): R79.89 - Other specified abnormal findings of blood chemistry (8) Severe protein-calorie malnutrition Status: Acute Category: Medical Code(s): E43 - Unspecified severe protein-calorie malnutrition (9) Cachectic Status: Acute Category: Medical Code(s): R64 - Cachexia (10) Severe sepsis with acute organ dysfunction Status: Acute Category: Medical Code(s): A41.9 - Sepsis, unspecified organism; R65.20 - Severe sepsis without septic shock (11) Severe mitral regurgitation Status: Acute Category: Medical Code(s): I34.0 - Nonrheumatic mitral (valve) insufficiency (12) CHF due to valvular disease Status: Acute Category: Medical Code(s): I50.9 - Heart failure, unspecified; I38 - Endocarditis, valve unspecified (13) Poor venous access Status: Acute Category: Medical Code(s): I87.8 - Other specified disorders of veins - Assessment and plan all Dx Assessment and Plan for all problems:: #Acute hypoxic respiratory failure: #CAP: #Bilateral pleural effusions: # H/O Mitral valve Endocarditis: # History of group B Septecemia: 61-year-old male completed his vaccination course for COVID-19 pneumonia (3 doses), current smoker greater than [id number] smoking history, presented to the hospital worsening respiratory distress and pulmonary was called for further management. Patient admits cough with productive phlegm for the last 3 weeks without any associated fevers or chills. He denies any lower extremity swelling. COVID-19, flu PCR negative and comprehensive respiratory viral PCR negative . Evidence of leukocytosis. Afebrile. BNP elevated. Chest x-ray admission bilateral diffuse infiltrates predominant right lower lobe involvement along with evidence of volume overload. CTA performed on admission did not show any evidence of pulmonary emboli however showed bilateral upper lobe predominant airspace disease and interstitial edema along with bilateral moderate pleural effusions, Rt > Lt Echocardiogram showed hyperdynamic heart normal EF with severe MR. Left heart cath no ischemic heart disease,records from OSH reviewed, patient has a recent diagnosis of group B septicemia and mitral valve endocarditis
--- NOTE | 2021-12-15 08:53 | HMH.ACPN ---
Internal Medicine - PN: Subj *Date: 12/15/21 *Time: 08:53 Exam Vital signs and Labs for Last 24 Hours: Temp Pulse Resp BP Pulse Ox 97.7 F 118 H 24 99/67 L 92 L 12/15/21 08:00 12/15/21 08:00 12/15/21 08:00 12/15/21 08:00 12/15/21 08:00 Laboratory Results - last 24 hr 12/15/21 05:25: WBC 13.1 H, RBC 3.30 L, Hgb 9.7 L, Hct 31.4 L, MCV 95.0 H, MCH 29.2, MCHC 30.8 L, RDW 18.2 H, Plt Count 316, MPV 8.9, Neut % (Auto) 87.2 H, Lymph % (Auto) 6.0 L, [place] % (Auto) 6.5, Eos % (Auto) 0.1, Baso % (Auto) 0.2, Neut # (Auto) 11.4 H, Lymph # (Auto) 0.8, [place] # (Auto) 0.9, Eos # (Auto) 0.0, Baso # (Auto) 0.0 12/15/21 05:25: Sodium 138, Potassium 3.2 L, Chloride 105, Carbon Dioxide 25, Anion Gap 11.2, BUN 22 H, Creatinine 0.70, Estimated Creat Clear 64, Estimated GFR 115, Est GFR ( Amer) 139, Glucose 105 H, Calcium 8.2 L I & O for Last 24 hours: Intake & Output 12/12/21 12/13/21 12/14/21 12/15/21 23:59 23:59 23:59 23:59 Intake Total 1931 / 1931 1121.6 / 1121.6 187.05 / 187.05 206.4 / 206.4 Output Total 825 / 825 1125 / 1125 0 / 0 Balance 1107 / 1107 -3.4 / -3.4 187.05 / 187.05 206.4 / 206.4 Weight 58.74 kg 58.649 kg 58.649 kg 58.649 kg Assessment and Plan (1) Chest pain Status: Acute Qualifiers: Chest pain type: unspecified Qualified Code(s): R07.9 - Chest pain, unspecified Category: Medical Code(s): R07.9 - Chest pain, unspecified (2) Atypical pneumonia Status: Acute Category: Medical Code(s): J18.9 - Pneumonia, unspecified organism (3) Severe anemia Status: Acute Category: Medical Code(s): D64.9 - Anemia, unspecified (4) Elevated troponin Status: Acute Category: Medical Code(s): R77.8 - Other specified abnormalities of plasma proteins (5) Tachycardia Status: Acute Category: Medical Code(s): R00.0 - Tachycardia, unspecified (6) History of lung cancer Status: Acute Category: Medical Code(s): Z85.118 - Personal history of other malignant neoplasm of bronchus and lung (7) Elevated brain natriuretic peptide (BNP) level Status: Acute Category: Medical Code(s): R79.89 - Other specified abnormal findings of blood chemistry (8) Severe protein-calorie malnutrition Status: Acute Category: Medical Code(s): E43 - Unspecified severe protein-calorie malnutrition (9) Cachectic Status: Acute Category: Medical Code(s): R64 - Cachexia (10) Severe sepsis with acute organ dysfunction Status: Acute Category: Medical Code(s): A41.9 - Sepsis, unspecified organism; R65.20 - Severe sepsis without septic shock (11) Severe mitral regurgitation Status: Acute Category: Medical Code(s): I34.0 - Nonrheumatic mitral (valve) insufficiency (12) CHF due to valvular disease Status: Acute Category: Medical Code(s): I50.9 - Heart failure, unspecified; I38 - Endocarditis, valve unspecified (13) Poor venous access Status: Acute Category: Medical Code(s): I87.8 - Other specified disorders of veins The patient's infection will respond to the chosen ABx?: Yes Is the patient receiving the right drug, dose, and route?: Yes Could a more targeted ABx be ordered?: No
--- NOTE | 2021-12-15 09:20 | HMH.ACPN2 ---
Internal Medicine - PN: Subj *Date: 12/15/21 *Time: 17:31 Interval history: 61-year-old male patient resting in bed quietly in no acute distress, denies any chest pain or shortness of breath during the night. Current oxygenation 92% on 4 L per nasal cannula. Levophed at 16 mics per kilogram per minute with systolic blood pressures mid 90s. Exam Vital signs and Labs for Last 24 Hours: Temp Pulse Resp BP Pulse Ox 97.7 F 118 H 24 99/67 L 92 L 12/15/21 08:00 12/15/21 08:00 12/15/21 08:00 12/15/21 08:00 12/15/21 08:00 Laboratory Results - last 24 hr 12/15/21 05:25: WBC 13.1 H, RBC 3.30 L, Hgb 9.7 L, Hct 31.4 L, MCV 95.0 H, MCH 29.2, MCHC 30.8 L, RDW 18.2 H, Plt Count 316, MPV 8.9, Neut % (Auto) 87.2 H, Lymph % (Auto) 6.0 L, [place] % (Auto) 6.5, Eos % (Auto) 0.1, Baso % (Auto) 0.2, Neut # (Auto) 11.4 H, Lymph # (Auto) 0.8, [place] # (Auto) 0.9, Eos # (Auto) 0.0, Baso # (Auto) 0.0 12/15/21 05:25: Sodium 138, Potassium 3.2 L, Chloride 105, Carbon Dioxide 25, Anion Gap 11.2, BUN 22 H, Creatinine 0.70, Estimated Creat Clear 64, Estimated GFR 115, Est GFR ( Amer) 139, Glucose 105 H, Calcium 8.2 L I & O for Last 24 hours: Intake & Output 12/12/21 12/13/21 12/14/21 12/15/21 23:59 23:59 23:59 23:59 Intake Total 1931 / 193 1121.6 / 1121.6 187.05 / 187.05 206.4 / 206.4 Output Total 825 / 825 1125 / 1125 0 / 0 Balance 1107 / 1107 -3.4 / -3.4 187.05 / 187.05 206.4 / 206.4 Weight 129 lb 7.992 oz 129 lb 4.8 oz 129 lb 4.782 oz 129 lb 4.8 oz - Constitutional no acute distress, thin, chronically ill appearing - *Routine HEENT Exam Head: Present: normocephalic Eye: Present: EOMI ENT: Present: mucous membranes moist - *Routine Neck Exam Present: trachea midline. Absent: tracheal deviation - *Routine Respiratory Exam Present: rales. Absent: accessory muscle use - *Routine Cardiovascular Exam Present: tachycardia - *Routine Abdominal Exam Present: soft, normoactive bowel sounds. Absent: tenderness Comments: PEG Tube - *Routine Extremities Exam Present: pulses intact. Absent: cyanosis, clubbing - *Routine Skin Exam Present: intact, dry. Absent: cyanosis, erythema - *Routine Neurological Exam Present: alert, altered mental status - Routine Psychiatric Exam Present: unable to assess Assessment and Plan (1) Chest pain Status: Acute Qualifiers: Chest pain type: unspecified Qualified Code(s): R07.9 - Chest pain, unspecified Category: Medical Code(s): R07.9 - Chest pain, unspecified (2) Atypical pneumonia Status: Acute Category: Medical Code(s): J18.9 - Pneumonia, unspecified organism (3) Severe anemia Status: Acute Category: Medical Code(s): D64.9 - Anemia, unspecified (4) Elevated troponin Status: Acute Category: Medical Code(s): R77.8 - Other specified abnormalities of plasma proteins (5) Tachycardia Status: Acute Category: Medical Code(s): R00.0 - Tachycardia, unspecified (6) History of lung cancer Status: Acute Category: Medical Code(s): Z85.118 - Personal history of other malignant neoplasm of bronchus and lung (7) Elevated brain natriuretic peptide (BNP) level Status: Acute Category: Medical Code(s): R79.89 - Other specified abnormal findings of blood chemistry (8) Severe protein-calorie malnutrition Status: Acute Category: Medical Code(s): E43 - Unspecified severe protein-calorie malnutrition (9) Cachectic Status: Acute Category: Medical Code(s): R64 - Cachexia (10) Severe sepsis with acute organ dysfunction Status: Acute Category: Medical Code(s): A41.9 - Sepsis, unspecified organism; R65.20 - Severe sepsis without septic shock (11) Severe mitral regurgitation Status: Acute Category: Medical Code(s): I34.0 - Nonrheumatic mitral (valve) insufficiency (12) CHF due to valvular disease Status: Acute Category: Medical Code(s): I50.9 - Heart failure, unspecified; I38 - Endocarditis, valve
[2021-12-15 09:35] LABS: VBG Base Excess -1.2 mmol/L (-2.4-2.3); VBG HCO3 23.1 mmol/L (23-30); VBG Oxygen Saturation 75.2 % (50-70); VBG PCO2 35.2 mmol/L (35-51); VBG PH 7.43 mmol/L (7.31-7.41); VBG PO2 41.1 mmol/L (28-40); VBG Total CO2 24.1 mmol/L (23-27)
[2021-12-15 10:35] LABS: Lymphocytes % 3 % (10-50); Monocytes % 5 % (2-9); Neutrophils % 92 % (42-76); Nucleated Red Blood Cells 1; Total Cells Counted 100
[2021-12-15 10:36] LABS: Platelet Estimate Normal
--- NOTE | 2021-12-15 10:54 | HMH.PNCARD ---
Subjective Date: 12/15/21 Time: 10:54 Principal diagnosis: Anemia, CHF, pneumonia, severe MR Interval history: 61-year-old white male sitting at bedside in no acute distress. Denies any chest pain. He remains on Levophed with a slow weaning process due to systolic pressures in the 80s-90s mmHg. Exam Vital signs and Labs for Last 24 Hours: Temp Pulse Resp BP Pulse Ox 97.7 F 116 H 24 84/63 L 98 12/15/21 08:00 12/15/21 10:00 12/15/21 10:00 12/15/21 10:00 12/15/21 10:00 Laboratory Results - last 24 hr 12/15/21 05:25: WBC 13.1 H, RBC 3.30 L, Hgb 9.7 L, Hct 31.4 L, MCV 95.0 H, MCH 29.2, MCHC 30.8 L, RDW 18.2 H, Plt Count 316, MPV 8.9, Neut % (Auto) 87.2 H, Lymph % (Auto) 6.0 L, [place] % (Auto) 6.5, Eos % (Auto) 0.1, Baso % (Auto) 0.2, Neut # (Auto) 11.4 H, Lymph # (Auto) 0.8, [place] # (Auto) 0.9, Eos # (Auto) 0.0, Baso # (Auto) 0.0, Total Counted 100, Neutrophils % (Manual) 92 H, Lymphocytes % (Manual) 3 L, Monocytes % (Manual) 5, Nucleated RBCs 1, Platelet Estimate Normal 12/15/21 05:25: Sodium 138, Potassium 3.2 L, Chloride 105, Carbon Dioxide 25, Anion Gap 11.2, BUN 22 H, Creatinine 0.70, Estimated Creat Clear 64, Estimated GFR 115, Est GFR ( Amer) 139, Glucose 105 H, Calcium 8.2 L 12/15/21 09:14: VBG pH 7.43 H, VBG pCO2 35.2, VBG pO2 41.1 H, VBG HCO3 23.1, VBG Total CO2 24.1, VBG O2 Saturation 75.2 H, VBG Base Excess -1.2 I & O for Last 24 hours: Intake & Output 12/12/21 12/13/21 12/14/21 12/15/21 11:59 11:59 11:59 11:59 Intake Total 240 / 240 2633 / 2633 367.65 / 367.65 206.4 / 206.4 Output Total 0 / 0 1450 / 1450 500 / 500 0 / 0 Balance 240 / 240 1183 / 1183 -132.35 / -132.35 206.4 / 206.4 Weight 129 lb 7.992 oz 129 lb 4.8 oz 129 lb 4.782 oz 129 lb 4.8 oz - *Routine Respiratory Exam Present: rhonchi, diminished air movement - *Routine Cardiovascular Exam Present: RRR, tachycardia - *Routine Neurological Exam Present: alert, oriented X3 Progress Note: A&P (1) Chest pain Status: Acute (2) Atypical pneumonia Status: Acute (3) Severe anemia Status: Acute (4) Elevated troponin Status: Acute (5) Tachycardia Status: Acute (6) History of lung cancer Status: Acute (7) Elevated brain natriuretic peptide (BNP) level Status: Acute (8) Severe protein-calorie malnutrition Status: Acute (9) Cachectic Status: Acute (10) Severe sepsis with acute organ dysfunction Status: Acute (11) Severe mitral regurgitation Status: Acute (12) CHF due to valvular disease Status: Acute (13) Poor venous access Status: Acute Assessment and Plan for All Diagnoses:: Continue afterload reducing medication (captopril) in hopes that patient will be able to tolerate Levophed weaning. Difficult situation since the patient is not a good surgical candidate and medical therapy is not curative. No plans for FRANSISCO. Proceed with tube feeding.
--- NOTE | 2021-12-15 11:33 | PC.NURSE ---
0900- Dr Jeter at bedside to see patient, stated to decrease patients levophed drip to 5mcg, drip decreased to to 5mcg at this time, current BP 104/73 MAP 83, given parameters of systolic 90 and MAP 60 0910- BP 86/52 MAP 63 0920- BP 91/53 MAP 65 0930- 102/58 MAP 72 0940- BP 84/63 MAP 70 1000- BP 74/49 MAP 57 Levophed titrated up to 8mcg at this time 1010- BP 73/34 MAP 48 Levophed titrated up to 10 mcg at this time 1050- BP 76/34 MAP 48 Levophed titrated up to 12mcg at this time 1100- BP 85/57 MAP 66 1130- BP 86/51 MAP 62 Levophed titrated up to 14mcg at this time
--- NOTE | 2021-12-15 12:13 | DIET.NUTRFU ---
Spoke to provider today and patient is ready to start TF, put order in. Osmolite 1.2 at 20ml/hr with goal rate of 60ml/hr ATC to provide 1380ml/1656kcal and 93gm protein with 1026ml free water, once IVF discontinued start flush of 150ml Q6H for total fluid of 1626ml/day. Current labs were reviewed, Na 138, K 3.2L, BUN 22H, Cr 0.70, glucose 105H. Receiving minimal fluids via IV at this time. He continues at high risk for skin breakdown with dx of protein malnutrition. will review POC with nursing
--- NOTE | 2021-12-15 15:02 | PC.NURSE ---
Patient has sat up on side of bed for most of the shift today, denies any pain or soa, remains on 3LNC, central line placed this am per Dr Peralta, placement confirmed with cxr, tube feedings inititated this shift via peg, levophed infusing at 14 mcg, attempted to wean without success, lung sounds diminished t/o with scattered expiratory wheezes, abd soft and nontender, hypoactive bowel sounds in all quads, no BM noted this shift, voids per urinal, speech is garbled which is baseline for patient, skin color ashen, patient has been tachycardic this shift, aware, ST per telemetry, bed in lowest position, call light in reach.
--- NOTE | 2021-12-15 15:51 | ECG_ITS ---
APPROVED REPORT Exam: Resting ECG HR:165 bpm ECG Measurements Heart Rate 165 AXES QRSd 86 QRS 91 QT 274 T 16 QTc 365 Conclusion ATRIAL FLUTTER/TACHYCARDIA WITH RAPID VENTRICULAR RESPONSE BORDERLINE RIGHT AXIS DEVIATION [QRS AXIS > 90] NONSPECIFIC ST & T-WAVE ABNORMALITY CRITICAL TEST RESULT UNCONFIRMED REPORT Electronically signed by : Norris Ng MD 12/15/2021 19:16:32
--- NOTE | 2021-12-15 16:26 | PC.NURSE ---
1537-Patient noted to have increase in HR on telemetry to 160-180, EKG obtained patient found to be in atrial flutter, Dr Cote contacted, after review of EKG given order to initiated amiodarone bolus and amiodarone drip.
--- NOTE | 2021-12-15 19:45 | PC.NURSE ---
increased levo drip to 16mcg/min due to bp 83/50 (61)
[2021-12-15 20:25] LABS: POC Glucose,Bedside 126 (70-110)
--- NOTE | 2021-12-15 21:10 | PC.NURSE ---
bp 83/37 (52), increased levo drip to 18mcg/min
[2021-12-16] VITALS (17 sets, daily range): BP systolic 82–101; BP diastolic 51–77; PULSE 100–118; RESP 22–45; TEMP 36.4–37.3; O2SAT 89–100; BMI 18.6
--- NOTE | 2021-12-16 03:05 | PC.NURSE ---
bp 119/70 (86), decreased levo drip to 16mcg/min
--- NOTE | 2021-12-16 04:35 | PC.NURSE ---
bp 99/78 (85), decreased levo drip to 14mcg/min
[2021-12-16 05:52] LABS: Basophils % 0.1 % (0.1-2.0); Eosinophils % 0.2 % (0.1-12.0); Hematocrit 29.9 % (42.0-52.0); Hemoglobin 9.3 g/dL (14.1-18.0); Lymphocytes # 0.7 K/mm3 (0.7-4.5); Lymphocytes % 5.6 % (10-50); Mean Corpuscular HGB Conc 31.2 g/dL (31.8-35.4); Mean Corpuscular Hemoglobin 30.3 pg (27.0-31.2); Mean Corpuscular Volume 97.2 fl (80-94); Mean Platelet Volume 9.3 fl (7.4-10.4); Monocytes # 0.7 K/mm3 (0.1-1.0); Monocytes % 5.6 % (1.7-9.3); Neutrophils # 10.9 K/mm3 (1.8-7.8); Neutrophils % 88.5 % (37.0-80.0); Platelet Count 295 K/mm3 (142-424); Red Blood Count 3.08 M/mm3 (4.60-6.20); Red Cell Distribution Width 18.5 % (11.5-17.5); White Blood Count 12.3 K/mm3 (4.8-10.8)
[2021-12-16 05:55] LABS: MANUAL DIFFERENTIAL MANUAL DIFFERENTIAL (MANUAL DIFF)
[2021-12-16 06:36] LABS: Creatinine Clearance Estimated 65 mL/min (50-200); Estimated Glomerular Filt Rate 115 ml/min (>60); GFR (African American) 139 ML/MIN (>60)
[2021-12-16 06:38] LABS: Potassium 3.9 mmoL/L (3.5-5.1); Sodium 135 mmol/L (136-145)
[2021-12-16 06:39] LABS: Anion Gap 10.9 mEq/L (5-15); Blood Urea Nitrogen 27 mg/dl (9-20); Calcium 8.2 mg/dl (8.4-10.2); Carbon Dioxide 24 mmol/L (22.0-30.0); Chloride 104 mmol/L (98-107); Glucose 134 mg/dl (74-100)
[2021-12-16 06:41] LABS: Anisocytosis 1+; Hypochromasia 1+; Lymphocytes % 6 % (10-50); Neutrophils % 88 % (42-76); Platelet Estimate Normal; Total Cells Counted 100
--- NOTE | 2021-12-16 07:42 | PC.NURSE ---
gave pt another cup and reminded him that we still need sputum sample.
--- NOTE | 2021-12-16 10:26 | HMH.ACPN2 ---
Internal Medicine - PN: Subj *Date: 12/16/21 *Time: 10:26 Interval history: sitting up - has central line and doing ok - no specific issue - still on pressor Exam Vital signs and Labs for Last 24 Hours: Temp Pulse Resp BP Pulse Ox 99.2 F 113 H 27 H 96/55 L 97 12/16/21 08:00 12/16/21 06:13 12/16/21 06:00 12/16/21 06:00 12/16/21 06:13 Laboratory Results - last 24 hr 12/15/21 05:25: Total Counted 100, Neutrophils % (Manual) 92 H, Lymphocytes % (Manual) 3 L, Monocytes % (Manual) 5, Nucleated RBCs 1, Platelet Estimate Normal 12/15/21 20:18: POC Glucose 126 H 12/16/21 05:45: WBC 12.3 H, RBC 3.08 L, Hgb 9.3 L, Hct 29.9 L, MCV 97.2 H, MCH 30.3, MCHC 31.2 L, RDW 18.5 H, Plt Count 295, MPV 9.3, Neut % (Auto) 88.5 H, Lymph % (Auto) 5.6 L, [place] % (Auto) 5.6, Eos % (Auto) 0.2, Baso % (Auto) 0.1, Neut # (Auto) 10.9 H, Lymph # (Auto) 0.7, [place] # (Auto) 0.7, Eos # (Auto) 0.0, Baso # (Auto) 0.0, Total Counted 100, Neutrophils % (Manual) 88 H, Band Neutrophils % 6.0, Lymphocytes % (Manual) 6 L, Platelet Estimate Normal, Hypochromasia 1+, Anisocytosis 1+ 12/16/21 05:45: Sodium 135 L, Potassium 3.9 D, Chloride 104, Carbon Dioxide 24, Anion Gap 10.9, BUN 27 H, Creatinine 0.70, Estimated Creat Clear 65, Estimated GFR 115, Est GFR ( Amer) 139, Glucose 134 H, Calcium 8.2 L I & O for Last 24 hours: Intake & Output 12/13/21 12/14/21 12/15/21 12/16/21 11:59 11:59 11:59 11:59 Intake Total 2633 / 2633 367.65 / 367.65 364.038 / 972.027 6540.032 / 3.032 Output Total 1450 / 1450 500 / 500 0 / 0 Balance 1183 / 1183 -132.35 / -132.35 364.038 / 931.691 1165.032 / 1922.032 Weight 129 lb 4.8 oz 129 lb 4.782 oz 129 lb 4.8 oz 130 lb 3 oz Microbiology Reports for the Last 24 Hours: Microbiology 12/13/21 13:45 Blood Blood Culture - Preliminary NO GROWTH AFTER 48 HOURS 12/13/21 13:45 Blood Blood Culture - Preliminary NO GROWTH AFTER 48 HOURS - Constitutional cachectic - *Routine HEENT Exam Head: Present: normocephalic Eye: Present: EOMI, PERRL ENT: Present: mucous membranes dry - *Routine Neck Exam Absent: JVD - *Routine Respiratory Exam Present: decreased breath sounds - *Routine Cardiovascular Exam Present: RRR - *Routine Abdominal Exam Present: soft, other (has g tube ) - *Routine Extremities Exam Absent: calf tenderness - *Routine Skin Exam Absent: rash - *Routine Neurological Exam Present: alert, CN II-XII intact - Routine Psychiatric Exam Present: cooperative Assessment and Plan (1) Chest pain Status: Acute Qualifiers: Chest pain type: unspecified Qualified Code(s): R07.9 - Chest pain, unspecified Category: Medical Code(s): R07.9 - Chest pain, unspecified (2) Atypical pneumonia Status: Acute Category: Medical Code(s): J18.9 - Pneumonia, unspecified organism (3) Severe anemia Status: Acute Category: Medical Code(s): D64.9 - Anemia, unspecified (4) Elevated troponin Status: Acute Category: Medical Code(s): R77.8 - Other specified abnormalities of plasma proteins (5) Tachycardia Status: Acute Category: Medical Code(s): R00.0 - Tachycardia, unspecified (6) History of lung cancer Status: Acute Category: Medical Code(s): Z85.118 - Personal history of other malignant neoplasm of bronchus and lung (7) Elevated brain natriuretic peptide (BNP) level Status: Acute Category: Medical Code(s): R79.89 - Other specified abnormal findings of blood chemistry (8) Severe protein-calorie malnutrition Status: Acute Category: Medical Code(s): E43 - Unspecified severe protein-calorie malnutrition (9) Cachectic Status: Acute Category: Medical Code(s): R64 - Cachexia (10) Severe sepsis with acute organ dysfunction Status: Acute Category: Medical Code(s): A41.9 - Sepsis, unspecified organism; R65.20 - Severe sepsis without septic shock (11) Severe mitral regurgi
--- NOTE | 2021-12-16 17:00 | PC.NURSE ---
Amio gtt turned OFF at this time.
[2021-12-17] VITALS (19 sets, daily range): BP systolic 88–147; BP diastolic 46–94; PULSE 100–125; RESP 24–45; TEMP 36.1–36.5; O2SAT 88–100; BMI 19.1
[2021-12-17 05:39] LABS: Hematocrit 31.5 % (42.0-52.0); Hemoglobin 9.5 g/dL (14.1-18.0); Lymphocytes # 0.5 K/mm3 (0.7-4.5); Mean Corpuscular Hemoglobin 29.6 pg (27.0-31.2); Mean Corpuscular Volume 98.8 fl (80-94); Mean Platelet Volume 9.1 fl (7.4-10.4); Monocytes # 0.6 K/mm3 (0.1-1.0); Monocytes % 3.8 % (1.7-9.3); Neutrophils % 93.1 % (37.0-80.0); Platelet Count 306 K/mm3 (142-424); Red Blood Count 3.19 M/mm3 (4.60-6.20); Red Cell Distribution Width 18.3 % (11.5-17.5); White Blood Count 16.1 K/mm3 (4.8-10.8)
[2021-12-17 05:40] LABS: MANUAL DIFFERENTIAL MANUAL DIFFERENTIAL (MANUAL DIFF)
[2021-12-17 05:50] LABS: Anion Gap 13.4 mEq/L (5-15); Blood Urea Nitrogen 35 mg/dl (9-20); Calcium 8.6 mg/dl (8.4-10.2); Carbon Dioxide 21 mmol/L (22.0-30.0); Chloride 105 mmol/L (98-107); Creatinine Clearance Estimated 65 mL/min (50-200); Estimated Glomerular Filt Rate 98 ml/min (>60); GFR (African American) 119 ML/MIN (>60); Potassium 4.4 mmoL/L (3.5-5.1); Sodium 135 mmol/L (136-145)
[2021-12-17 05:53] LABS: Glucose 180 mg/dl (74-100)
[2021-12-17 05:57] LABS: Anisocytosis 1+; Hypochromasia 2+; Lymphocytes % 4 % (10-50); Macrocytosis 1+; Neutrophils % 87 % (42-76); Platelet Estimate Normal; Rouleaux 1+; Total Cells Counted 100
--- NOTE | 2021-12-17 11:30 | HMH.ACPN2 ---
Internal Medicine - PN: Subj *Date: 12/18/21 *Time: 07:32 Interval history: looks better and needs oral card - still on drip Exam Vital signs and Labs for Last 24 Hours: Temp Pulse Resp BP Pulse Ox 97.7 F 117 H 24 147/94 H 94 L 12/17/21 11:13 12/17/21 08:00 12/17/21 08:00 12/17/21 08:00 12/17/21 08:00 Laboratory Results - last 24 hr 12/17/21 05:30: WBC 16.1 H D, RBC 3.19 L, Hgb 9.5 L, Hct 31.5 L, MCV 98.8 H, MCH 29.6, MCHC 30.0 L, RDW 18.3 H, Plt Count 306, MPV 9.1, Neut % (Auto) 93.1 H, Lymph % (Auto) 3.0 L, [place] % (Auto) 3.8, Eos % (Auto) 0.0 L, Baso % (Auto) 0.0 L, Neut # (Auto) 15.0 H, Lymph # (Auto) 0.5 L, [place] # (Auto) 0.6, Eos # (Auto) 0.0, Baso # (Auto) 0.0, Total Counted 100, Neutrophils % (Manual) 87 H, Band Neutrophils % 9.0 H, Lymphocytes % (Manual) 4 L, Platelet Estimate Normal, Hypochromasia 2+, Anisocytosis 1+, Macrocytosis 1+, [place] 1+ 12/17/21 05:30: Sodium 135 L, Potassium 4.4, Chloride 105, Carbon Dioxide 21 L, Anion Gap 13.4, BUN 35 H D, Creatinine 0.80, Estimated Creat Clear 65, Estimated GFR 98, Est GFR ( Amer) 119, Glucose 180 H D, Calcium 8.6 I & O for Last 24 hours: Intake & Output 12/14/21 12/15/21 12/16/21 12/17/21 11:59 11:59 11:59 11:59 Intake Total 367.65 / 367.65 364.038 / 370.705 7422.032 / 8070.129 8111 / 3605 Output Total 500 / 500 0 / 0 300 / 300 Balance -132.35 / -132.35 364.038 / 871.792 8979.032 / 2358.808 2813 / 3305 Weight 129 lb 4.782 oz 129 lb 4.8 oz 130 lb 3 oz 133 lb 6.4 oz - Constitutional cachectic - *Routine HEENT Exam Head: Present: normocephalic Eye: Present: EOMI, PERRL ENT: Present: mucous membranes dry - *Routine Neck Exam Present: supple. Absent: JVD - *Routine Respiratory Exam Present: decreased breath sounds - *Routine Cardiovascular Exam Present: RRR - *Routine Abdominal Exam Present: soft - *Routine Extremities Exam Absent: calf tenderness - *Routine Skin Exam Absent: jaundice - *Routine Neurological Exam Present: alert - Routine Psychiatric Exam Present: cooperative Assessment and Plan (1) Chest pain Status: Acute Qualifiers: Chest pain type: unspecified Qualified Code(s): R07.9 - Chest pain, unspecified Category: Medical Code(s): R07.9 - Chest pain, unspecified (2) Atypical pneumonia Status: Acute Category: Medical Code(s): J18.9 - Pneumonia, unspecified organism (3) Severe anemia Status: Acute Category: Medical Code(s): D64.9 - Anemia, unspecified (4) Elevated troponin Status: Acute Category: Medical Code(s): R77.8 - Other specified abnormalities of plasma proteins (5) Tachycardia Status: Acute Category: Medical Code(s): R00.0 - Tachycardia, unspecified (6) History of lung cancer Status: Acute Category: Medical Code(s): Z85.118 - Personal history of other malignant neoplasm of bronchus and lung (7) Elevated brain natriuretic peptide (BNP) level Status: Acute Category: Medical Code(s): R79.89 - Other specified abnormal findings of blood chemistry (8) Severe protein-calorie malnutrition Status: Acute Category: Medical Code(s): E43 - Unspecified severe protein-calorie malnutrition (9) Cachectic Status: Acute Category: Medical Code(s): R64 - Cachexia (10) Severe sepsis with acute organ dysfunction Status: Acute Category: Medical Code(s): A41.9 - Sepsis, unspecified organism; R65.20 - Severe sepsis without septic shock (11) Severe mitral regurgitation Status: Acute Category: Medical Code(s): I34.0 - Nonrheumatic mitral (valve) insufficiency (12) CHF due to valvular disease Status: Acute Category: Medical Code(s): I50.9 - Heart failure, unspecified; I38 - Endocarditis, valve unspecified (13) Poor venous access Status: Acute Category: Medical Code(s): I87.8 - Other specified disorders of veins (14) Septic shock Status: Acute Category: Medical Code(s): A41.9 - Sepsis, unspecified organism;
--- NOTE | 2021-12-17 13:50 | PC.NURSE ---
small amount of tubefeeds coming around PEG site. Rate decreased to 20mL/hr.
--- NOTE | 2021-12-17 22:46 | PC.NURSE ---
bp 130/46 (74), decreased levo drip to 12
[2021-12-18] VITALS (24 sets, daily range): BP systolic 75–106; BP diastolic 28–72; PULSE 102–121; RESP 22–38; TEMP 36.4–36.6; O2SAT 90–110; BMI 14.5
--- NOTE | 2021-12-18 01:34 | PC.NURSE ---
pt's bp 86/28 (47), increased levo to 14mcg/min
--- NOTE | 2021-12-18 02:41 | PC.NURSE ---
bp 86/63 (70), decreased levo drip to 12mcg/min
--- NOTE | 2021-12-18 06:00 | XR_ITS ---
PROCEDURE INFORMATION: Exam: XR Chest Exam date and time: 12/18/2021 6:00 AM Age: 61 years old Clinical indication: Shortness of breath and other: Respiratory failure and pneumonia; Additional info: Resp failure and pna TECHNIQUE: Imaging protocol: XR of the chest. Views: 1 view. COMPARISON: CR XR CHEST PORTABLE 12/15/2021 7:17 AM FINDINGS: Tubes, catheters and devices: Stable appearance of the right IJ CVC. Lungs: Overall, similar appearance to previous. Moderate to severe interstitial/alveolar opacities bilaterally. Pleural spaces: Moderate right pleural effusion. Possible small left pleural effusion. Heart/Mediastinum: Cardiomegaly and pulmonary vascular congestion. Bones/joints: Unremarkable. IMPRESSION: Overall, similar appearance to previous. Moderate to severe interstitial/alveolar opacities bilaterally; question pneumonia and/or edema. Moderate right pleural effusion. Otherwise, as above.
[2021-12-18 06:09] LABS: Eosinophils % 0.1 % (0.1-12.0); Hematocrit 31.3 % (42.0-52.0); Hemoglobin 9.4 g/dL (14.1-18.0); Lymphocytes # 0.8 K/mm3 (0.7-4.5); Lymphocytes % 5.2 % (10-50); Mean Corpuscular HGB Conc 29.9 g/dL (31.8-35.4); Mean Corpuscular Hemoglobin 29.3 pg (27.0-31.2); Mean Corpuscular Volume 98.1 fl (80-94); Mean Platelet Volume 9.1 fl (7.4-10.4); Monocytes # 0.7 K/mm3 (0.1-1.0); Monocytes % 4.6 % (1.7-9.3); Neutrophils # 13.1 K/mm3 (1.8-7.8); Neutrophils % 90.1 % (37.0-80.0); Platelet Count 308 K/mm3 (142-424); Red Blood Count 3.19 M/mm3 (4.60-6.20); Red Cell Distribution Width 18.4 % (11.5-17.5); White Blood Count 14.5 K/mm3 (4.8-10.8)
[2021-12-18 06:11] LABS: MANUAL DIFFERENTIAL MANUAL DIFFERENTIAL (MANUAL DIFF)
[2021-12-18 06:25] LABS: Anisocytosis 2+; Hypochromasia 1+; Lymphocytes % 10 % (10-50); Macrocytosis 1+; Monocytes % 1 % (2-9); Neutrophils % 86 % (42-76); Platelet Estimate Normal; Total Cells Counted 100
[2021-12-18 06:34] LABS: Chloride 103 mmol/L (98-107); Potassium 4.7 mmoL/L (3.5-5.1); Sodium 134 mmol/L (136-145)
[2021-12-18 06:37] LABS: Alanine Aminotransferase 316 U/L (12-78); Alkaline Phosphatase 103 U/L (38-126); Anion Gap 8.7 mEq/L (5-15); Aspartate Amino Transferase 164 U/L (17-59); Bilirubin,Total 0.6 mg/dl (0.2-1.3); Blood Urea Nitrogen 31 mg/dl (9-20); Calcium 8.3 mg/dl (8.4-10.2); Carbon Dioxide 27 mmol/L (22.0-30.0); Creatinine Clearance Estimated 51 mL/min (50-200); Estimated Glomerular Filt Rate 115 ml/min (>60); GFR (African American) 139 ML/MIN (>60); Glucose 114 mg/dl (74-100)
--- NOTE | 2021-12-18 09:19 | HMH.PULMPN ---
Internal Medicine - PN: Subj *Date: 12/18/21 *Time: 11:05 Interval history: Patient denies any new respiratory complaints. Exam - Constitutional Constitutional:: Present: no acute distress, comfortable - HENMT Exam HENMT: Present: normocephalic - Eye Exam Eyes:: Present: normal appearance both eyes and related structures - Neck Exam Neck:: Present: normal visual inspection - Respiratory Exam Respiratory:: Present: able to speak in complete sentences, respiratory distress, crackles - Cardiovascular Exam Cardiac:: Present: S1, S2 - GI Exam GI:: Present: soft - Skin Exam Skin: Present: warm - Neurological Exam Neurological: Present: alert, awake - Extremities Exam Extremities: Present: no cyanosis, no clubbing, edema Assessment and Plan (1) Chest pain Status: Acute Qualifiers: Chest pain type: unspecified Qualified Code(s): R07.9 - Chest pain, unspecified Category: Medical Code(s): R07.9 - Chest pain, unspecified (2) Atypical pneumonia Status: Acute Category: Medical Code(s): J18.9 - Pneumonia, unspecified organism (3) Severe anemia Status: Acute Category: Medical Code(s): D64.9 - Anemia, unspecified (4) Elevated troponin Status: Acute Category: Medical Code(s): R77.8 - Other specified abnormalities of plasma proteins (5) Tachycardia Status: Acute Category: Medical Code(s): R00.0 - Tachycardia, unspecified (6) History of lung cancer Status: Acute Category: Medical Code(s): Z85.118 - Personal history of other malignant neoplasm of bronchus and lung (7) Elevated brain natriuretic peptide (BNP) level Status: Acute Category: Medical Code(s): R79.89 - Other specified abnormal findings of blood chemistry (8) Severe protein-calorie malnutrition Status: Acute Category: Medical Code(s): E43 - Unspecified severe protein-calorie malnutrition (9) Cachectic Status: Acute Category: Medical Code(s): R64 - Cachexia (10) Severe sepsis with acute organ dysfunction Status: Acute Category: Medical Code(s): A41.9 - Sepsis, unspecified organism; R65.20 - Severe sepsis without septic shock (11) Severe mitral regurgitation Status: Acute Category: Medical Code(s): I34.0 - Nonrheumatic mitral (valve) insufficiency (12) CHF due to valvular disease Status: Acute Category: Medical Code(s): I50.9 - Heart failure, unspecified; I38 - Endocarditis, valve unspecified (13) Poor venous access Status: Acute Category: Medical Code(s): I87.8 - Other specified disorders of veins (14) Septic shock Status: Acute Category: Medical Code(s): A41.9 - Sepsis, unspecified organism; R65.21 - Severe sepsis with septic shock - Assessment and plan all Dx Assessment and Plan for all problems:: #Acute hypoxic respiratory failure: #CAP: #Bilateral pleural effusions: # H/O Mitral valve Endocarditis: # History of group B Septecemia: 61-year-old male completed his vaccination course for COVID-19 pneumonia (3 doses), current smoker greater than [id number] smoking history, presented to the hospital worsening respiratory distress and pulmonary was called for further management. Patient admits cough with productive phlegm for the last 3 weeks without any associated fevers or chills. He denies any lower extremity swelling. COVID-19, flu PCR negative and comprehensive respiratory viral PCR negative . Evidence of leukocytosis. Afebrile. BNP elevated. Chest x-ray admission bilateral diffuse infiltrates predominant right lower lobe involvement along with evidence of volume overload. CTA performed on admission did not show any evidence of pulmonary emboli however showed bilateral upper lobe predominant airspace disease and interstitial edema along with bilateral moderate pleural effusions, Rt > Lt Echocardiogram showed hyperdynamic heart normal EF with severe MR. Left heart cath no ischemic heart disease,records from OSH reviewed, patient has a
--- NOTE | 2021-12-18 09:49 | DIET.NUTRFU ---
Patient is unable to meet nutritional needs via TF, currently only tolerating 20ml/hr. nursing noted TF coming out of PEG. Current TF is providing 552kcal and 25gm protein with 377ml water with flush of 600ml/day with multiple meds provided in Nacl or dextrose. Still not meet hydration needs. Patient noted to have plural effusion with lasix provided on 12/12-12/13. Labs today were Na 134L, K 4.7, BUN 31H, Cr 0.70 and glucose 114H, AST 164H, ALT 316H. Will continue to monitor labs to determine if additional IV is needed based on current TF. Was started on Nystatin for oral card, reports it feels better today. During rounds CERTIFIED ORTHOTIST PRACTICE MANAGER mentioned that family has been approached before about hospice and was not interested at that time. hop worker may approach again to see it anything has changed.
--- NOTE | 2021-12-18 09:58 | HMH.ACPN2 ---
Internal Medicine - PN: Subj *Date: 12/18/21 *Time: 08:25 Interval history: pt sitting up on side of bed Exam Vital signs and Labs for Last 24 Hours: Temp Pulse Resp BP Pulse Ox 97.5 F L 108 H 31 H 102/49 L 110 H 12/18/21 06:00 12/18/21 06:03 12/18/21 06:00 12/18/21 06:00 12/18/21 06:03 Laboratory Results - last 24 hr 12/18/21 05:50: WBC 14.5 H, RBC 3.19 L, Hgb 9.4 L, Hct 31.3 L, MCV 98.1 H, MCH 29.3, MCHC 29.9 L, RDW 18.4 H, Plt Count 308, MPV 9.1, Neut % (Auto) 90.1 H, Lymph % (Auto) 5.2 L, [place] % (Auto) 4.6, Eos % (Auto) 0.1, Baso % (Auto) 0.0 L, Neut # (Auto) 13.1 H, Lymph # (Auto) 0.8, [place] # (Auto) 0.7, Eos # (Auto) 0.0, Baso # (Auto) 0.0, Total Counted 100, Neutrophils % (Manual) 86 H, Band Neutrophils % 3.0, Lymphocytes % (Manual) 10, Monocytes % (Manual) 1 L, Platelet Estimate Normal, Hypochromasia 1+, Anisocytosis 2+, Macrocytosis 1+ 12/18/21 05:50: Sodium 134 L, Potassium 4.7, Chloride 103, Carbon Dioxide 27, Anion Gap 8.7, BUN 31 H, Creatinine 0.70, Estimated Creat Clear 51, Estimated GFR 115, Est GFR ( Amer) 139, Glucose 114 H, Calcium 8.3 L, Total Bilirubin 0.6, AST 164 H, ALT 316 H*, Alkaline Phosphatase 103, Total Protein 6.0 L, Albumin 3.0 L, Globulin 3.0, Albumin/Globulin Ratio 1.0 L I & O for Last 24 hours: Intake & Output 12/15/21 12/16/21 12/17/21 12/18/21 11:59 11:59 11:59 11:59 Intake Total 364.038 / 288.484 9825.032 / 2053.960 0605 / 3605 1393.094 / 1393.094 Output Total 0 / 0 500 / 500 350 / 350 Balance 364.038 / 146.005 8320.032 / 4963.305 2616 / 3105 1043.094 / 1043.094 Weight 129 lb 4.8 oz 130 lb 3 oz 133 lb 6.4 oz 101 lb 9.6 oz Microbiology Reports for the Last 24 Hours: Microbiology 12/13/21 14:05 Nose - Nasal MRSA Culture - Final Negative - Constitutional no acute distress, thin, chronically ill appearing - *Routine HEENT Exam Head: Present: normocephalic Eye: Present: PERRL ENT: Present: mucous membranes moist - *Routine Neck Exam Present: supple. Absent: lymphadenopathy - *Routine Respiratory Exam Present: decreased breath sounds, rhonchi - *Routine Cardiovascular Exam Present: RRR - *Routine Abdominal Exam Present: soft, normoactive bowel sounds. Absent: tenderness - *Routine Exam Comments: peg in place and tube feeding infusing - *Routine Extremities Exam Absent: cyanosis, clubbing, edema - *Routine Skin Exam Present: warm. Absent: rash - *Routine Neurological Exam Present: alert, oriented X3 Assessment and Plan (1) Chest pain Status: Acute Qualifiers: Chest pain type: unspecified Qualified Code(s): R07.9 - Chest pain, unspecified Category: Medical Code(s): R07.9 - Chest pain, unspecified (2) Atypical pneumonia Status: Acute Category: Medical Code(s): J18.9 - Pneumonia, unspecified organism (3) Severe anemia Status: Acute Category: Medical Code(s): D64.9 - Anemia, unspecified (4) Elevated troponin Status: Acute Category: Medical Code(s): R77.8 - Other specified abnormalities of plasma proteins (5) Tachycardia Status: Acute Category: Medical Code(s): R00.0 - Tachycardia, unspecified (6) History of lung cancer Status: Acute Category: Medical Code(s): Z85.118 - Personal history of other malignant neoplasm of bronchus and lung (7) Elevated brain natriuretic peptide (BNP) level Status: Acute Category: Medical Code(s): R79.89 - Other specified abnormal findings of blood chemistry (8) Severe protein-calorie malnutrition Status: Acute Category: Medical Code(s): E43 - Unspecified severe protein-calorie malnutrition (9) Cachectic Status: Acute Category: Medical Code(s): R64 - Cachexia (10) Severe sepsis with acute organ dysfunction Status: Acute Category: Medical Code(s): A41.9 - Sepsis, unspecified organism; R65.20 - Severe sepsis without septic shock (11) Severe mitral regurgitation Status: Acute Ca
--- NOTE | 2021-12-18 11:11 | US_ITS ---
FINAL REPORT CLINICAL HISTORY: Right pleural effusion-- 1060 ml-- gilbert ariza FINDINGS: ULTRASOUND-GUIDED THORACENTESIS HISTORY: Pleural effusion. ATTENDING PHYSICIAN: Dr. Isaacs. PHYSICIAN UNDERCOLLAR MAKER: Gilbert David PA-C TECHNIQUE: Informed consent was obtained from the patient. The indications and complications were discussed with the patient prior to beginning the procedure. This included, but was not limited to pain, bleeding, infection, and pneumothorax requiring chest tube placement. The right back was then prepped and draped in sterile fashion. 1% Lidocaine was used for local anesthesia. Utilizing sonographic guidance, a standard thoracentesis needle and sheath were inserted into the pleural space and approximately 1 L of clear yellow pleural fluid was successfully removed without complication. The patient tolerated the procedure well. Sample of the fluid was sent to the lab for preoperative studies. IMPRESSION: Technically successful sonographic guided right-sidedthoracentesis as above. Films reviewed , interpreted and dictated by Dr. Isaacs. Transcribed by Gilbert David PA-C. Reviewed, Interpreted and Dictated by Jorge Isaacs III, MD Transcribed by RENETTA Harmon Authenticated by Jorge Isaacs III, MD on 12/20/2021 08:06:33 AM [facility]
--- NOTE | 2021-12-18 12:19 | HMH.PNCARD ---
Subjective Date: 12/18/21 Time: 10:00 Principal diagnosis: Anemia, CHF, pneumonia, severe MR Interval history: This is a 61-year-old white gentleman who appears to be in no distress sitting on the side of the bed this morning. He denies any chest pain. He denies any shortness of breath. He states that his chest feels a little congested. He remains on a Levophed drip this morning for blood pressure support. He denies any lower extremity edema. He did start tube feeds this morning. Exam Vital signs and Labs for Last 24 Hours: Temp Pulse Resp BP Pulse Ox 97.5 F L 110 H 31 H 102/49 L 90 L 12/18/21 06:00 12/18/21 11:15 12/18/21 06:00 12/18/21 06:00 12/18/21 11:15 Laboratory Results - last 24 hr 12/18/21 05:50: WBC 14.5 H, RBC 3.19 L, Hgb 9.4 L, Hct 31.3 L, MCV 98.1 H, MCH 29.3, MCHC 29.9 L, RDW 18.4 H, Plt Count 308, MPV 9.1, Neut % (Auto) 90.1 H, Lymph % (Auto) 5.2 L, [place] % (Auto) 4.6, Eos % (Auto) 0.1, Baso % (Auto) 0.0 L, Neut # (Auto) 13.1 H, Lymph # (Auto) 0.8, [place] # (Auto) 0.7, Eos # (Auto) 0.0, Baso # (Auto) 0.0, Total Counted 100, Neutrophils % (Manual) 86 H, Band Neutrophils % 3.0, Lymphocytes % (Manual) 10, Monocytes % (Manual) 1 L, Platelet Estimate Normal, Hypochromasia 1+, Anisocytosis 2+, Macrocytosis 1+ 12/18/21 05:50: Sodium 134 L, Potassium 4.7, Chloride 103, Carbon Dioxide 27, Anion Gap 8.7, BUN 31 H, Creatinine 0.70, Estimated Creat Clear 51, Estimated GFR 115, Est GFR ( Amer) 139, Glucose 114 H, Calcium 8.3 L, Total Bilirubin 0.6, AST 164 H, ALT 316 H*, Alkaline Phosphatase 103, Total Protein 6.0 L, Albumin 3.0 L, Globulin 3.0, Albumin/Globulin Ratio 1.0 L I & O for Last 24 hours: Intake & Output 12/15/21 12/16/21 12/17/21 12/18/21 23:59 23:59 23:59 23:59 Intake Total 2175.872 / 2175.872 2883.198 / 2883.198 2086 / 2086 140.094 / 140.094 Output Total 500 / 850 350 / 350 Balance 2175.872 / 2175.872 2883.198 / 2883.198 1586 / 1236 -209.906 / -209.906 Weight 129 lb 4.8 oz 130 lb 3 oz 133 lb 6.4 oz 101 lb 9.6 oz Microbiology Reports for the Last 24 Hours: Microbiology 12/13/21 14:05 Nose - Nasal MRSA Culture - Final Negative Narrative: Telemetry strip shows sinus rhythm with a rate in the 90s. - Constitutional no acute distress, thin, chronically ill appearing - *Routine HEENT Exam Head: Present: normocephalic Eye: Present: EOMI, PERRL ENT: Present: mucous membranes moist - *Routine Neck Exam Present: supple, full ROM, normal carotid upstroke. Absent: JVD, carotid bruit, lymphadenopathy - *Routine Respiratory Exam Present: decreased breath sounds - *Routine Cardiovascular Exam Present: RRR, Normal S1, Normal S2, murmur - *Routine Abdominal Exam Present: soft, normoactive bowel sounds. Absent: tenderness, distended - *Routine Extremities Exam Present: edema (Trace bilateral lower extremity edema), full ROM, pulses intact, normal capillary refill. Absent: cyanosis, clubbing - *Routine Skin Exam Present: intact, warm. Absent: erythema, rash - *Routine Neurological Exam Present: alert, altered mental status Progress Note: A&P (1) Severe mitral regurgitation Status: Acute (2) CHF due to valvular disease Status: Acute (3) Atypical pneumonia Status: Acute (4) Severe anemia Status: Acute (5) Elevated troponin Status: Acute (6) Tachycardia Status: Acute (7) History of lung cancer Status: Acute (8) Elevated brain natriuretic peptide (BNP) level Status: Acute (9) Severe protein-calorie malnutrition Status: Acute (10) Cachectic Status: Acute (11) Severe sepsis with acute organ dysfunction Status: Acute (12) Poor venous access Status: Acute (13) Septic shock Status: Acute Assessment and Plan for All Diagnoses:: Plan: 1. Continue Levophed drip for blood pressure support. However we would like to start weaning the Levophed drip. He can likely tolerate a systolic b
--- NOTE | 2021-12-18 13:19 | XR_ITS ---
FINAL REPORT CLINICAL HISTORY: Post thoracentesis COMPARISON: Earlier the same day FINDINGS: A single view of the chest was obtained. A right jugular deep line remains in place. There are persistent pulmonary opacities which may represent edema or pneumonia. There is pulmonary vascular congestion. There is markedly improved right pleural effusion. There is no pneumothorax. There is persistent left base atelectasis or pneumonia. IMPRESSION: Markedly improved right pleural effusion. Persistent pulmonary opacities may represent edema or pneumonia. Persistent left base atelectasis or pneumonia. Reviewed, Interpreted and Dictated by Jorge Isaacs III, MD Transcribed by Lupis Santiago Authenticated by Jorge Isaacs III, MD on 12/18/2021 02:47:22 PM [facility]
--- NOTE | 2021-12-18 15:35 | PC.NURSE ---
Pt had thoracentesis at approx 1300. Radiology PA huseyin David , Ellyn Cantu, Pricila HARRIS and Omer Hanna at bedside. pt had approx 1060 ml of straw colored fluid drained from r lung. time out performed by Juve Cantu.
[2021-12-19] VITALS (17 sets, daily range): BP systolic 70–93; BP diastolic 43–68; PULSE 101–119; RESP 22–28; TEMP 36.2–36.9; O2SAT 93–100; BMI 15.8
--- NOTE | 2021-12-19 05:31 | PC.NURSE ---
Pt is more weak. Not able to stand anymore then a couple of minutes. Pt is currently on 7L O2 NC. Levophed is currently infusing @ 16 mcg/min. Was titrated up due to decline in BP. Pt has been tachycardic this shift. HR 110s. Tube feeds currently infusing @ 30 ml/hr. 0 residual noted, but leaking found around peg tube site. Area cleaned and dressed x3 this shift. Pt has had 2 incontinent episodes. Brief in place. Central ine patent. No other concerns. Will continue to monitor.
[2021-12-19 06:03] LABS: Basophils % 0.2 % (0.1-2.0); Eosinophils % 0.2 % (0.1-12.0); Hemoglobin 9.6 g/dL (14.1-18.0); Lymphocytes # 0.6 K/mm3 (0.7-4.5); Lymphocytes % 4.5 % (10-50); Mean Corpuscular HGB Conc 29.9 g/dL (31.8-35.4); Mean Corpuscular Hemoglobin 29.2 pg (27.0-31.2); Mean Corpuscular Volume 97.6 fl (80-94); Mean Platelet Volume 9.6 fl (7.4-10.4); Monocytes # 0.7 K/mm3 (0.1-1.0); Monocytes % 5.3 % (1.7-9.3); Neutrophils # 12.5 K/mm3 (1.8-7.8); Neutrophils % 89.8 % (37.0-80.0); Platelet Count 307 K/mm3 (142-424); Red Blood Count 3.28 M/mm3 (4.60-6.20); Red Cell Distribution Width 19.2 % (11.5-17.5); White Blood Count 13.9 K/mm3 (4.8-10.8)
[2021-12-19 06:06] LABS: MANUAL DIFFERENTIAL MANUAL DIFFERENTIAL (MANUAL DIFF)
[2021-12-19 06:09] LABS: Alanine Aminotransferase 269 U/L (12-78); Albumin Level 2.9 g/dl (3.5-5.0); Albumin/Globulin Ratio 1.1 (1.1-1.8); Alkaline Phosphatase 102 U/L (38-126); Anion Gap 8.6 mEq/L (5-15); Aspartate Amino Transferase 118 U/L (17-59); Bilirubin,Total 0.7 mg/dl (0.2-1.3); Blood Urea Nitrogen 30 mg/dl (9-20); Calcium 8.5 mg/dl (8.4-10.2); Carbon Dioxide 32 mmol/L (22.0-30.0); Chloride 100 mmol/L (98-107); Creatinine Clearance Estimated 47 mL/min (50-200); Estimated Glomerular Filt Rate 137 ml/min (>60); GFR (African American) 166 ML/MIN (>60); Globulin 2.7 g/dL (1.3-3.2); Glucose 119 mg/dl (74-100); Potassium 4.6 mmoL/L (3.5-5.1); Sodium 136 mmol/L (136-145); Total Protein,Serum 5.6 g/dl (6.3-8.2)
--- NOTE | 2021-12-19 08:12 | HMH.ACPN2 ---
Internal Medicine - PN: Subj *Date: 12/19/21 *Time: 12:49 Interval history: 61 YOM lying in bed oxygen currently at 6 L per nasal cannula. Levophed currently at 14 mcg/kg/min and blood pressure is currently high 80s systolic. He did have a thoracentesis performed yesterday with approx 1060 ml of straw colored fluid drained from r lung. Nursing staff did report to be draining from G-tube site, dressing with some drainage on it and G-tube hub adjusted. Long discussion with his sister Veda regarding his poor health, and with his poor prognosis will consult Hospice Exam Vital signs and Labs for Last 24 Hours: Temp Pulse Resp BP Pulse Ox 98.5 F 109 H 26 H 88/57 L 95 12/19/21 04:00 12/19/21 06:09 12/19/21 06:00 12/19/21 06:00 12/19/21 06:09 Laboratory Results - last 24 hr 12/19/21 05:45: WBC 13.9 H, RBC 3.28 L, Hgb 9.6 L, Hct 32.0 L, MCV 97.6 H, MCH 29.2, MCHC 29.9 L, RDW 19.2 H, Plt Count 307, MPV 9.6, Neut % (Auto) 89.8 H, Lymph % (Auto) 4.5 L, Motley % (Auto) 5.3, Eos % (Auto) 0.2, Baso % (Auto) 0.2, Neut # (Auto) 12.5 H, Lymph # (Auto) 0.6 L, Motley # (Auto) 0.7, Eos # (Auto) 0.0, Baso # (Auto) 0.0 12/19/21 05:45: Sodium 136, Potassium 4.6, Chloride 100, Carbon Dioxide 32 H, Anion Gap 8.6, BUN 30 H, Creatinine 0.60 L, Estimated Creat Clear 47, Estimated GFR 137, Est GFR ( Amer) 166, Glucose 119 H, Calcium 8.5, Total Bilirubin 0.7, AST 118 H D, ALT 269 H, Alkaline Phosphatase 102, Total Protein 5.6 L, Albumin 2.9 L, Globulin 2.7, Albumin/Globulin Ratio 1.1 I & O for Last 24 hours: Intake & Output 02/26/12/17/21 12/18/21 12/19/21 23:59 23:59 23:59 23:59 Intake Total 2883.198 / 2883.198 2086 / 2086 456.402 / 995.402 539 / 539 Output Total 500 / 850 1550 / 1550 Balance 2883.198 / 2883.198 1586 / 1236 -1093.598 / -554.598 539 / 539 Weight 130 lb 3 oz 133 lb 6.4 oz 101 lb 9.6 oz 95 lb 6 oz Microbiology Reports for the Last 24 Hours: Microbiology 12/18/21 13:03 Pleural Fluid - Right Gram Stain - Final 12/13/21 13:45 Blood Blood Culture - Final NO GROWTH AFTER 5 DAYS 12/13/21 13:45 Blood Blood Culture - Final NO GROWTH AFTER 5 DAYS 12/18/21 11:36 Sputum - Expectorated Sputum Gram Stain - Final - Constitutional no acute distress, chronically ill appearing - *Routine HEENT Exam Head: Present: normocephalic Eye: Present: EOMI ENT: Present: mucous membranes moist - *Routine Neck Exam Present: trachea midline. Absent: tracheal deviation - *Routine Respiratory Exam Present: crackles - *Routine Cardiovascular Exam Present: tachycardia - *Routine Abdominal Exam Present: soft, normoactive bowel sounds, firm - *Routine Extremities Exam Present: full ROM, pulses intact. Absent: cyanosis, clubbing, edema - *Routine Skin Exam Present: dry, wounds. Absent: cyanosis, erythema Comments: GT Abd w/ drsg - *Routine Neurological Exam Present: alert, altered mental status - Routine Psychiatric Exam Present: unable to assess Assessment and Plan (1) Severe mitral regurgitation Status: Acute Category: Medical Code(s): I34.0 - Nonrheumatic mitral (valve) insufficiency (2) CHF due to valvular disease Status: Acute Category: Medical Code(s): I50.9 - Heart failure, unspecified; I38 - Endocarditis, valve unspecified (3) Atypical pneumonia Status: Acute Category: Medical Code(s): J18.9 - Pneumonia, unspecified organism (4) Severe anemia Status: Acute Category: Medical Code(s): D64.9 - Anemia, unspecified (5) Elevated troponin Status: Acute Category: Medical Code(s): R77.8 - Other specified abnormalities of plasma proteins (6) Tachycardia Status: Acute Category: Medical Code(s): R00.0 - Tachycardia, unspecified (7) History of lung cancer Status: Acute Category: Medical Code(s): Z85.118 - Personal history of other malignant neoplasm of bronchus and lung (8) Yecenia
[2021-12-19 08:59] LABS: Anisocytosis 1+; Hypochromasia 1+; Lymphocytes % 2 % (10-50); Macrocytosis 1+; Monocytes % 8 % (2-9); Neutrophils % 90 % (42-76); Platelet Estimate Normal; Total Cells Counted 100
--- NOTE | 2021-12-19 09:15 | DIET.NUTRFU ---
During rounding today, PIN CHASER looked at PEG suite. It does not seem to be leaking when he is laying down. But patient likes to sit on edge of bed and that is when it starts leaking rapidly. It appears loose, PIN CHASER consulted Flex to look at it. Patient is not able to receive 100% of nutritional needs d/t the leaking. Currently TF is running at 30ml/hr providing 828kcal and 38gm protein with 508ml free water with 600ml flush= 1108ml/day. Labs reviewed: Na 136, K 4.6, BUN 30, Cr 0.6L, glucose 119H. He is only receiving minimal IVF with some medications, will continue to watch for hydration status. ABT tx completed today. Lives at LTC, will need PEG working prior to return. general production worker also reviewing patient and family wishes with POC. He also had 1060ml removed yesterday via thoracentesis., liver enzymes have improved.
--- NOTE | 2021-12-19 09:19 | HMH.PULMPN ---
<GenoLamberto - Last Filed: 12/19/21 09:39> Internal Medicine - PN: Subj *Date: 12/19/21 *Time: 09:39 Assessment and Plan (1) Severe mitral regurgitation Status: Acute Category: Medical Code(s): I34.0 - Nonrheumatic mitral (valve) insufficiency (2) CHF due to valvular disease Status: Acute Category: Medical Code(s): I50.9 - Heart failure, unspecified; I38 - Endocarditis, valve unspecified (3) Atypical pneumonia Status: Acute Category: Medical Code(s): J18.9 - Pneumonia, unspecified organism (4) Severe anemia Status: Acute Category: Medical Code(s): D64.9 - Anemia, unspecified (5) Elevated troponin Status: Acute Category: Medical Code(s): R77.8 - Other specified abnormalities of plasma proteins (6) Tachycardia Status: Acute Category: Medical Code(s): R00.0 - Tachycardia, unspecified (7) History of lung cancer Status: Acute Category: Medical Code(s): Z85.118 - Personal history of other malignant neoplasm of bronchus and lung (8) Elevated brain natriuretic peptide (BNP) level Status: Acute Category: Medical Code(s): R79.89 - Other specified abnormal findings of blood chemistry (9) Severe protein-calorie malnutrition Status: Acute Category: Medical Code(s): E43 - Unspecified severe protein-calorie malnutrition (10) Cachectic Status: Acute Category: Medical Code(s): R64 - Cachexia (11) Severe sepsis with acute organ dysfunction Status: Acute Category: Medical Code(s): A41.9 - Sepsis, unspecified organism; R65.20 - Severe sepsis without septic shock (12) Poor venous access Status: Acute Category: Medical Code(s): I87.8 - Other specified disorders of veins (13) Septic shock Status: Acute Category: Medical Code(s): A41.9 - Sepsis, unspecified organism; R65.21 - Severe sepsis with septic shock (14) Pleural effusion due to congestive heart failure Status: Acute Category: Medical Code(s): I50.9 - Heart failure, unspecified <Tien Jeter - Last Filed: 12/19/21 11:21> Internal Medicine - PN: Subj *Date: 12/19/21 *Time: 11:21 Interval history: No acute respiratory events overnight. Patient denies any new respiratory complaints. Exam - Constitutional Constitutional:: Present: no acute distress, comfortable - HENMT Exam HENMT: Present: normocephalic, atraumatic - Eye Exam Eyes:: Present: normal appearance both eyes and related structures - Neck Exam Neck:: Present: normal visual inspection - Respiratory Exam Respiratory:: Present: able to speak in complete sentences, no respiratory distress, crackles. Absent: wheezing - Cardiovascular Exam Cardiac:: Present: S1, S2 - GI Exam GI:: Present: soft - Skin Exam Skin: Present: warm - Neurological Exam Neurological: Present: alert, awake - Extremities Exam Extremities: Present: no cyanosis, no clubbing, edema Assessment and Plan (1) Severe mitral regurgitation Status: Acute Category: Medical Code(s): I34.0 - Nonrheumatic mitral (valve) insufficiency (2) CHF due to valvular disease Status: Acute Category: Medical Code(s): I50.9 - Heart failure, unspecified; I38 - Endocarditis, valve unspecified (3) Atypical pneumonia Status: Acute Category: Medical Code(s): J18.9 - Pneumonia, unspecified organism (4) Severe anemia Status: Acute Category: Medical Code(s): D64.9 - Anemia, unspecified (5) Elevated troponin Status: Acute Category: Medical Code(s): R77.8 - Other specified abnormalities of plasma proteins (6) Tachycardia Status: Acute Category: Medical Code(s): R00.0 - Tachycardia, unspecified (7) History of lung cancer Status: Acute Category: Medical Code(s): Z85.118 - Personal history of other malignant neoplasm of bronchus and lung (8) Elevated brain natriuretic peptide (BNP) level Status: Acute Category: Medical Code(s): R79.89 - Other specified abnormal findings of blood chemistry (9) Skye
--- NOTE | 2021-12-19 11:02 | HMH.PNCARD ---
Subjective Date: 12/19/21 Time: 11:00 Principal diagnosis: Anemia, CHF, pneumonia, severe MR Interval history: This is a 61-year-old white gentleman who was admitted and found to have severe compensated mitral regurgitation. The patient's Levophed drip was stopped this morning and he was hypotensive with a systolic blood pressure in the 70s. At first the patient tolerated this well but then became unresponsive and his oxygen saturations dropped and he became tachycardic. He was restarted on the Levophed drip at 5 mcg. His systolic blood pressure remains in the 70s but he is now awake and alert and his oxygen saturations have improved in the low 90s. He states that he does not feel well but has no specific complaint. Denies chest pain, shortness of breath or dizziness. Exam Vital signs and Labs for Last 24 Hours: Temp Pulse Resp BP Pulse Ox 98.5 F 109 H 26 H 88/57 L 95 12/19/21 04:00 12/19/21 06:09 12/19/21 06:00 12/19/21 06:00 12/19/21 06:09 Laboratory Results - last 24 hr 12/19/21 05:45: WBC 13.9 H, RBC 3.28 L, Hgb 9.6 L, Hct 32.0 L, MCV 97.6 H, MCH 29.2, MCHC 29.9 L, RDW 19.2 H, Plt Count 307, MPV 9.6, Neut % (Auto) 89.8 H, Lymph % (Auto) 4.5 L, Cross % (Auto) 5.3, Eos % (Auto) 0.2, Baso % (Auto) 0.2, Neut # (Auto) 12.5 H, Lymph # (Auto) 0.6 L, Cross # (Auto) 0.7, Eos # (Auto) 0.0, Baso # (Auto) 0.0, Total Counted 100, Neutrophils % (Manual) 90 H, Lymphocytes % (Manual) 2 L, Monocytes % (Manual) 8, Platelet Estimate Normal, Hypochromasia 1+, Anisocytosis 1+, Macrocytosis 1+ 12/19/21 05:45: Sodium 136, Potassium 4.6, Chloride 100, Carbon Dioxide 32 H, Anion Gap 8.6, BUN 30 H, Creatinine 0.60 L, Estimated Creat Clear 47, Estimated GFR 137, Est GFR ( Amer) 166, Glucose 119 H, Calcium 8.5, Total Bilirubin 0.7, AST 118 H D, ALT 269 H, Alkaline Phosphatase 102, Total Protein 5.6 L, Albumin 2.9 L, Globulin 2.7, Albumin/Globulin Ratio 1.1 I & O for Last 24 hours: Intake & Output 12/16/21 12/17/21 12/18/21 12/19/21 23:59 23:59 23:59 23:59 Intake Total 2883.198 / 2883.198 6 / 6 456.402 / 995.402 539 / 539 Output Total 500 / 850 1550 / 1550 Balance 2883.198 / 2883.198 1586 / 1236 -1093.598 / -554.598 539 / 539 Weight 130 lb 3 oz 133 lb 6.4 oz 101 lb 9.6 oz 95 lb 6 oz Microbiology Reports for the Last 24 Hours: Microbiology 12/18/21 11:36 Sputum - Expectorated Sputum Gram Stain - Final 12/18/21 11:36 Sputum - Expectorated Sputum Sputum Culture - Preliminary 12/18/21 13:03 Pleural Fluid - Right Gram Stain - Final 12/13/21 13:45 Blood Blood Culture - Final NO GROWTH AFTER 5 DAYS 12/13/21 13:45 Blood Blood Culture - Final NO GROWTH AFTER 5 DAYS Narrative: Immature strip shows sinus rhythm with a rate of 100. - Constitutional no acute distress, thin, chronically ill appearing - *Routine HEENT Exam Head: Present: normocephalic, atraumatic Eye: Present: EOMI, PERRL ENT: Present: mucous membranes moist - *Routine Neck Exam Present: supple, full ROM, trauma. Absent: JVD, carotid bruit, lymphadenopathy - *Routine Respiratory Exam Present: CTA bilaterally - *Routine Cardiovascular Exam Present: RRR, Normal S1, Normal S2, murmur - *Routine Abdominal Exam Present: soft, normoactive bowel sounds. Absent: tenderness, distended - *Routine Extremities Exam Present: edema (Trace bilateral lower extremity edema), full ROM, pulses intact, normal capillary refill. Absent: cyanosis, clubbing - *Routine Skin Exam Present: intact, warm. Absent: erythema, rash - *Routine Neurological Exam Present: alert, altered mental status Progress Note: A&P (1) Severe mitral regurgitation Status: Acute (2) CHF due to valvular disease Status: Acute (3) Atypical pneumonia Status: Acute (4) Severe anemia Status: Acute (5) Elevated troponin Status: Acute (6) Tachycardia Status: Acute (7) History of lung can
[2021-12-19 13:11] LABS: Albumin, Body Fluid 0.7 g/dL (Not Estab.); Glucose, Body Fluid 132 mg/dL (.); LD, Body Fluid 101 IU/L (.); Protein, Body Fluid 1.4 g/dL (.)
[2021-12-20] VITALS (8 sets, daily range): BP systolic 76–103; BP diastolic 49–53; PULSE 101–117; RESP 24–26; TEMP 36.4; O2SAT 92–95; BMI 18.5
--- NOTE | 2021-12-20 05:29 | PC.NURSE ---
pt has been restless, but has rested some this shift, has remained on 7L, O2 sats 92-98%, has remained tachy with HR 101-117, leaking noted around tube feed site, dark brown in color
[2021-12-20 06:50] LABS: Eosinophils % 0.1 % (0.1-12.0); Hematocrit 33.1 % (42.0-52.0); Hemoglobin 9.6 g/dL (14.1-18.0); Lymphocytes # 0.5 K/mm3 (0.7-4.5); Lymphocytes % 3.8 % (10-50); Mean Corpuscular HGB Conc 29.1 g/dL (31.8-35.4); Mean Corpuscular Hemoglobin 29.2 pg (27.0-31.2); Mean Corpuscular Volume 100.5 fl (80-94); Mean Platelet Volume 9.8 fl (7.4-10.4); Monocytes # 0.7 K/mm3 (0.1-1.0); Neutrophils # 11.9 K/mm3 (1.8-7.8); Neutrophils % 91.1 % (37.0-80.0); Platelet Count 271 K/mm3 (142-424); Red Cell Distribution Width 18.9 % (11.5-17.5); White Blood Count 13.1 K/mm3 (4.8-10.8)
[2021-12-20 07:03] LABS: Albumin Level 2.9 g/dl (3.5-5.0); Alkaline Phosphatase 99 U/L (38-126); Anion Gap 8.7 mEq/L (5-15); Bilirubin,Total 0.7 mg/dl (0.2-1.3); Blood Urea Nitrogen 29 mg/dl (9-20); Calcium 8.7 mg/dl (8.4-10.2); Carbon Dioxide 31 mmol/L (22.0-30.0); Chloride 104 mmol/L (98-107); Creatinine Clearance Estimated 55 mL/min (50-200); Estimated Glomerular Filt Rate 137 ml/min (>60); GFR (African American) 166 ML/MIN (>60); Globulin 2.8 g/dL (1.3-3.2); Glucose 105 mg/dl (74-100); Potassium 4.7 mmoL/L (3.5-5.1); Sodium 139 mmol/L (136-145); Total Protein,Serum 5.7 g/dl (6.3-8.2)
[2021-12-20 07:06] LABS: MANUAL DIFFERENTIAL MANUAL DIFFERENTIAL (MANUAL DIFF)
--- NOTE | 2021-12-20 07:46 | DIET.NUTRFU ---
RD spoke to nursing this morning, his PEG continues to leak and TF was turned off during evening. Family has decided on hospice and plans to discharge back to [facility] today for comfort measures
--- NOTE | 2021-12-20 09:23 | HMH.DCSUM ---
General - General Admission date:: 12/11/21 Discharge date: 12/20/21 HPI HPI: 61-year-old male patient presented to the [facility] emergency department with reports of chest discomfort. He states that this discomfort started earlier in the day and resolved shortly afterwards, he denied pain at present states the pain was midline and nonradiating reports it felt more like a dullness. He denies any shortness of breath, cough, headache, fever/chills/body aches, or nausea/vomiting/diarrhea 12/11/21 CXR: FINDINGS: Lungs: Bilateral mid and lower lung zone predominant ground-glass and linear opacities, right greater than left, likely multifocal pneumonia. Atypical viral pneumonia, such as COVID-19, could have this appearance. Alternatively or concomitantly, hydrostatic/cardiogenic pulmonary edema possible. Pleural spaces: Unremarkable. No pleural effusion. No pneumothorax. Heart/Mediastinum: Normal. Vasculature: Atherosclerotic vascular disease. Bones/joints: Multilevel thoracic spine degenerative disc space narrowing and osteophyte formation. IMPRESSION: Bilateral mid and lower lung zone predominant ground-glass and linear opacities, right greater than left, likely multifocal pneumonia. Atypical viral pneumonia, such as COVID-19, could have this appearance. Alternatively or concomitantly, hydrostatic/cardiogenic pulmonary edema possible. Electronically signed by Jayant Coates MD 61-year-old male patient resting in bed quietly she denies any chest pain or shortness of breath during the night. Hemoglobin 6.9 we will transfuse 2 units of packed red blood cells. Hospital Course Hospital Course: Abnormal Lab Results 12/20/21 06:36: WBC 13.1 H, RBC 3.30 L, Hgb 9.6 L, Hct 33.1 L, MCV 100.5 H, MCHC 29.1 L, RDW 18.9 H, Neut % (Auto) 91.1 H, Lymph % (Auto) 3.8 L, Baso % (Auto) 0.0 L, Neut # (Auto) 11.9 H, Lymph # (Auto) 0.5 L 12/20/21 06:36: Carbon Dioxide 31 H, BUN 29 H, Creatinine 0.60 L, Glucose 105 H, Total Protein 5.7 L, Albumin 2.9 L, Albumin/Globulin Ratio 1.0 L Microbiology 12/18/21 13:03 Pleural Fluid - Right Gram Stain - Final 12/18/21 13:03 Pleural Fluid - Right Body Fluid Culture - Preliminary NO GROWTH AFTER 24 HOURS 12/18/21 11:36 Sputum - Expectorated Sputum Gram Stain - Final 12/18/21 11:36 Sputum - Expectorated Sputum Sputum Culture - Preliminary 12/13/21 13:45 Blood Blood Culture - Final NO GROWTH AFTER 5 DAYS 12/13/21 13:45 Blood Blood Culture - Final NO GROWTH AFTER 5 DAYS 12/13/21 14:05 Nose - Nasal MRSA Culture - Final Negative Ordering Physician: Raghu Barboza MD Date of Service: 12/11/21 Procedure(s): XR chest portable Accession Number(s): [id number] cc: Marily Merino APRN; Jayant Coates MD~ PROCEDURE INFORMATION: Exam: XR Chest Exam date and time: 12/11/2021 6:40 PM Age: 61 years old Clinical indication: Cough TECHNIQUE: Imaging protocol: XR of the chest. Views: 1 view. COMPARISON: CHESTW CT chest w con 01/15/2018 4:24 PM FINDINGS: Lungs: Bilateral mid and lower lung zone predominant ground-glass and linear opacities, right greater than left, likely multifocal pneumonia. Atypical viral pneumonia, such as COVID-19, could have this appearance. Alternatively or concomitantly, hydrostatic/cardiogenic pulmonary edema possible. Pleural spaces: Unremarkable. No pleural effusion. No pneumothorax. Heart/Mediastinum: Normal. Vasculature: Atherosclerotic vascular disease. Bones/joints: Multilevel thoracic spine degenerative disc space narrowing and osteophyte formation.
[2021-12-20 09:30] LABS: Coronavirus 19, PCR Not Detected (NotDetected); Influenza A, PCR Not Detected (NotDetected); Influenza B, PCR Not Detected (NotDetected)
--- NOTE | 2021-12-20 09:35 | HMH.PULMPN ---
Internal Medicine - PN: Subj *Date: 12/20/21 *Time: 10:40 Interval history: No acute respiratory events overnight. Patient was made hospice and will be discharging to [facility] today. Exam - Constitutional Constitutional:: Present: comfortable - HENMT Exam HENMT: Present: normocephalic, atraumatic - Respiratory Exam Respiratory:: Present: respiratory distress, crackles. Absent: wheezing - Cardiovascular Exam Cardiac:: Present: S1, S2 - GI Exam GI:: Present: soft - Skin Exam Skin: Present: warm - Neurological Exam Neurological: Absent: alert, awake, normal cognition - Extremities Exam Extremities: Present: no cyanosis, no clubbing, edema Assessment and Plan (1) Severe mitral regurgitation Status: Acute Category: Medical Code(s): I34.0 - Nonrheumatic mitral (valve) insufficiency (2) CHF due to valvular disease Status: Acute Category: Medical Code(s): I50.9 - Heart failure, unspecified; I38 - Endocarditis, valve unspecified (3) Atypical pneumonia Status: Acute Category: Medical Code(s): J18.9 - Pneumonia, unspecified organism (4) Severe anemia Status: Acute Category: Medical Code(s): D64.9 - Anemia, unspecified (5) Elevated troponin Status: Acute Category: Medical Code(s): R77.8 - Other specified abnormalities of plasma proteins (6) Tachycardia Status: Acute Category: Medical Code(s): R00.0 - Tachycardia, unspecified (7) History of lung cancer Status: Acute Category: Medical Code(s): Z85.118 - Personal history of other malignant neoplasm of bronchus and lung (8) Elevated brain natriuretic peptide (BNP) level Status: Acute Category: Medical Code(s): R79.89 - Other specified abnormal findings of blood chemistry (9) Severe protein-calorie malnutrition Status: Acute Category: Medical Code(s): E43 - Unspecified severe protein-calorie malnutrition (10) Cachectic Status: Acute Category: Medical Code(s): R64 - Cachexia (11) Severe sepsis with acute organ dysfunction Status: Acute Category: Medical Code(s): A41.9 - Sepsis, unspecified organism; R65.20 - Severe sepsis without septic shock (12) Poor venous access Status: Acute Category: Medical Code(s): I87.8 - Other specified disorders of veins (13) Septic shock Status: Acute Category: Medical Code(s): A41.9 - Sepsis, unspecified organism; R65.21 - Severe sepsis with septic shock (14) Pleural effusion due to congestive heart failure Status: Acute Category: Medical Code(s): I50.9 - Heart failure, unspecified - Assessment and plan all Dx Assessment and Plan for all problems:: #Acute hypoxic respiratory failure: #CAP: #Bilateral pleural effusions: # H/O Mitral valve Endocarditis: # History of group B Septecemia: 61-year-old male completed his vaccination course for COVID-19 pneumonia (3 doses), current smoker greater than [id number] smoking history, presented to the hospital worsening respiratory distress and pulmonary was called for further management. Patient admits cough with productive phlegm for the last 3 weeks without any associated fevers or chills. He denies any lower extremity swelling. COVID-19, flu PCR negative and comprehensive respiratory viral PCR negative . Evidence of leukocytosis. Afebrile. BNP elevated. Chest x-ray admission bilateral diffuse infiltrates predominant right lower lobe involvement along with evidence of volume overload. CTA performed on admission did not show any evidence of pulmonary emboli however showed bilateral upper lobe predominant airspace disease and interstitial edema along with bilateral moderate pleural effusions, Rt > Lt Echocardiogram showed hyperdynamic heart normal EF with severe MR. Left heart cath no ischemic heart disease,records from OSH reviewed, patient has a recent diagnosis of group B septicemia and mitral valve endocarditis status post completion of 4 weeks of IV treatment with ceftriaxone with a c
[2021-12-20 09:43] LABS: Alanine Aminotransferase 289 U/L (12-78); Aspartate Amino Transferase 138 U/L (17-59)
[2021-12-20 11:13] LABS: Lymphocytes % 1 % (10-50); Monocytes % 4 % (2-9); Neutrophils % 95 % (42-76); Nucleated Red Blood Cells 1; Total Cells Counted 100
[2021-12-20 11:14] LABS: Macrocytosis 1+; Platelet Estimate Normal
[2021-12-20 11:53] LABS: Lactate Dehydrogenase 333 U/L (313-618)
[2021-12-24 10:45] LABS: Source, Body Fld. Thoracentesis Fluid
[2021-12-24 11:05] LABS: Mononuclear WBCs,Body Fluid 58 %; Polynuclear WBC,Body Fluid 42 %; RBC,Body Fluid 0 cells/uL (< 10 X 10^3)
[2021-12-24 11:06] LABS: TNC,Body Fluid 138 cells/uL (< 1000)
== END 2021-12-20 11:55 | disposition hospice, home (50) | DRG 871 ==
LOC: ER 19:44 → 2ND 12-12 08:35
PROVIDERS: Internal Medicine; Internal Medicine Pulmonary Disease; Nurse Practitioner Family; Physician Assistant; Admitting Provider Family Medicine; Emergency Provider Emergency Medicine; PCP Nurse Practitioner Family; Visit Provider Emergency Medicine
PROC: 4A023N7 Measurement of Cardiac Sampling and Pressure, Left Heart, Percutaneous Approach (ICD-10-PCS; principal; 2021-12-13 10:45)
DX: A41.9 Sepsis, unspecified organism (principal); J18.9 Pneumonia, unspecified organism; E43 Unspecified severe protein-calorie malnutrition; J96.01 Acute respiratory failure with hypoxia; R65.21 Severe sepsis with septic shock; Z68.1 Body mass index [BMI] 19.9 or less, adult; R64 Cachexia; I38 Endocarditis, valve unspecified; I24.8 Other forms of acute ischemic heart disease; I34.0 Nonrheumatic mitral (valve) insufficiency; I50.9 Heart failure, unspecified; D64.9 Anemia, unspecified; Z85.819 Personal history of malignant neoplasm of unspecified site of lip, oral cavity, and pharynx; Z85.118 Personal history of other malignant neoplasm of bronchus and lung; E03.9 Hypothyroidism, unspecified; Z20.822 Contact with and (suspected) exposure to COVID-19; R07.9 Chest pain, unspecified; F17.210 Nicotine dependence, cigarettes, uncomplicated
CPT/HCPCS: 36556; 32555; 36415; 71045; 71275; 80048; 80053; 82042; 82803; 82945; 82962; 83615; 83735; 83880; 84155; 84484; 85007; 85014; 85018; 85025; 86850; 87040; 87070; 87077; 87081; 87186; 87205; 87486; 87581; 87632; 87798; 88112; 88305; 89051; 93005; 93306; 93458; 94640; 94760; 94761; 96365; 96375; 99152; 99284; C1725; C1751; C1769; C9803; J0282; J0456; J0696; J1644; J2405; J7060; P9016; Q9967; U0003; U0005